=== PATIENT | female | born 1980 | race Caucasian/White ===

== ENCOUNTER 2017-11-29 16:32 | Inpatient (IN) | payer OTHER ==
[2017-11-29] MEDS ORDERED: SODIUM CHLORIDE 1,000 ML IV STA (18:04)
--- NOTE | 2017-11-29 18:05 | ED.PDOC ---
General ED Provider: Dr. ADALGISA KYLE Chief Complaint: Fever Stated Complaint: Painful [id number] Flank. Hx previouls Pyelonephritis and polycystic kidney disease. Time Seen by Physician: 17:45 Mode of Arrival: Walk-In Information Source: Patient Exam Limitations: No limitations Nursing and Triage Documentation Reviewed and Agree: Yes Reviewed sepsis parameters & appropriate labs ordered?: Yes System Inflammatory Response Syndrome: Temp 101F or Greater, Pulse >90 BPM Sepsis Protocol: For patient's 13 years and over: Temp is 96.8 and below OR 101 and greater Pulse >90 BPM Resp >20/minute Acutely Altered Mental Status Are patient's symptoms suggestive of a new infection, such as: -Pneumonia -Skin, Soft Tissue -Endocarditis -UTI -Bone, Joint Infection -Implantable Device -Acute Abdominal Infection -Wound Infection -Meningitis -Blood Stream Catheter Infection -Unknown Complaint Exam - Complaint/Exam Patient Complains of: Reports: Pain, Dysuria Symptoms Are: Still present Timing: Constant Initial Severity: Severe Current Severity: Severe Location of Pain: Reports: Diffuse, Right, Flank Character: Reports: Sharp, Colicky, Constant pressure Aggravating: Reports: Movement, Urination Alleviating: Reports: Position Associated Signs and Symptoms: Reports: Back pain, Fever, Dysuria, Increased urine frequency. Denies: Diaphoresis, Decreased activity, Vaginal bleeding Related History: Reports: Similar episode Ectopic Risk Factors: Reports: None Ovarian Torsion Risk Factors: Reports: None Surgical Obstruction Risk Factors: Reports: None Related Surgical History: Reports: None Abdominal Findings: Present: Rebound tenderness (RUQ) Review of Systems - Review Of Systems Constitutional: Reports: No symptoms, Chills, Diaphoresis, Fever, Malaise, Weakness Eyes: Reports: No symptoms Ears, Nose, Mouth, Throat: Reports: No symptoms Respiratory: Reports: No symptoms Cardiac: Reports: No symptoms GI: Reports: No symptoms : Reports: No symptoms, Burning, Dysuria, Frequency, Flank pain, Pain, Urgency Musculoskeletal: Reports: No symptoms Skin: Reports: No symptoms Neurological: Reports: No symptoms Endocrine: Reports: No symptoms Hematologic/Lymphatic: Reports: No symptoms All Other Systems: Reviewed and Negative Past Medical History - Past Medical History Previously Healthy: Yes Endocrine: Reports: None Cardiovascular: Reports: None Respiratory: Reports: None Hematological: Reports: None Gastrointestinal: Reports: None Genitourinary: Reports: UTI, Kidney stones, Urosepsis, Other (polycystic ovarian disease) Neuro/Psych: Reports: None Musculoskeletal: Reports: None Cancer: Reports: None Last Menstrual Period: 10/21/17 - Surgical History General Surgical History: Reports: Cholecystectomy - Family History Family History: Reports: Unknown - Social History Smoking Status: Current every day smoker Hx Substance Use: No Alcohol Screening: None Physical Exam - Physical Exam Appearance: Ill-appearing, No pain distress, Well-nourished Ill-appearing: Severe Pain Distress: Severe Eyes: GEOVANI, EOMI, Conjunctiva clear ENT: Ears normal, Nose normal, Oropharynx normal Respiratory: Airway patent, Breath sounds clear, Breath sounds equal, Respirations nonlabored Cardiovascular: RRR, Pulses normal, No rub, No murmur GI/: Soft, No masses, Bowel sounds normal, No Organomegaly, Tender, Bowel sounds hypoactive Musculoskeletal: Normal strength, ROM intact, No edema, No calf tenderness Skin: Warm, Dry, Normal color Neurological: Sensation intact, Motor intact, Reflexes intact, Cranial nerves intact, Alert, Oriented Psychiatric: Affect appropriate, Mood appropriate Critical Care Note - Critical Care Note Total Time (mins): 30 Course - Course Hematology/Chemistry: 11/29/17 18:16 11/29/17 18:16 Orders, Labs, Meds: Lab Review 11/29/17 11/29/17 11/29/17 18:00 18:16 18:16 WBC 12.67 H RBC 3.89 L Hgb 11.9 L Hct 34.7 L MCV 89.2 MCH 30.6 MCHC 34.3 RDW Coeff of April 12.9 Plt Count 176 Immature Gran % (Auto) 0.2 Neut % (Auto) 84.8 Lymph % (Auto) 5.1 L [place] % (Auto) 9.4 Eos % (Auto) 0.3 Baso % (Auto) 0.2 Immature Gran # (Auto) 0.0 Neut # (Auto) 10.7 H Lymph # (Auto) 0.6 [place] # (Auto) 1.2 Eos # (Auto) 0.0 Baso # (Auto) 0.0 Sodium 134 L Potassium 3.7 Chloride 103 Carbon Dioxide 22 Anion Gap 12.7 BUN 12 Creatinine 0.73 Estimated GFR (MDRD) 90.00 BUN/Creatinine Ratio 16.43 Glucose 112 H Lactic Acid Calcium 8.9 Total Bilirubin 0.3 AST 22 ALT 25 Alkaline Phosphatase 66 Total Protein 6.7 Albumin 3.0 L Globulin 3.7 Albumin/Globulin Ratio 0.81 Lipase 9 Serum , Qual Urine Color Yellow Urine Clarity Cloudy Urine pH 7.0 Ur Specific [place] 1.020 Urine Protein 2+ Urine Glucose (UA) Negative Urine Ketones Negative Urine Blood 2+ Urine Nitrite Negative Urine Bilirubin Negative Urine Urobilinogen 0.2 Ur Leukocyte Esterase 1+ Urine Microscopic WBC 20-30 Ur Squamous Epith Cells Not present Urine Bacteria 2+ 11/29/17 11/29/17 18:16 18:16 WBC RBC Hgb Hct MCV MCH MCHC RDW Coeff of April Plt Count Immature Gran % (Auto) Neut % (Auto) Lymph % (Auto) [place] % (Auto) Eos % (Auto) Baso % (Auto) Immature Gran # (Auto) Neut # (Auto) Lymph # (Auto) [place] # (Auto) Eos # (Auto) Baso # (Auto) Sodium Potassium Chloride Carbon Dioxide Anion Gap BUN Creatinine Estimated GFR (MDRD) BUN/Creatinine Ratio Glucose Lactic Acid 6.4 Calcium Total Bilirubin AST ALT Alkaline Phosphatase Total Protein Albumin Globulin Albumin/Globulin Ratio Lipase Serum , Qual Negative Urine Color Urine Clarity Urine pH Ur Specific [place] Urine Protein Urine Glucose (UA) Urine Ketones Urine Blood Urine Nitrite Urine Bilirubin Urine Urobilinogen Ur Leukocyte Esterase Urine Microscopic WBC Ur Squamous Epith Cells Urine Bacteria Orders Category Date Time Status IV [ED IV/MEDIPORT/POWERPORT] .ONCE EMERGENCY 11/29/17 18:02 Active BLOOD CULTURE (ED ONLY) Stat LAB 11/29/17 18:16 Received CBC W/ AUTO DIFF Stat LAB 11/29/17 18:16 Completed COMPREHENSIVE METABOLIC PANEL Stat LAB 11/29/17 18:16 Received HCG QUALITATIVE [SERUM ] Stat LAB 11/29/17 18:16 Completed LACTIC ACID Stat LAB 11/29/17 18:16 Received LIPASE Stat LAB 11/29/17 18:16 Received RAPID STREP SCREEN [MOLECULAR GROUP A STREP] Stat LAB 11/29/17 18:06 Completed UA [URINALYSIS C & S IF INDICATED] Stat LAB 11/29/17 18:00 Completed URINE CULTURE Stat LAB 11/29/17 18:00 Received 0.9 % Sodium Chloride [Saline Flush] MEDS 11/29/17 18:02 Ordered 1 syr IVF PRN PRN Ceftriaxone Sodium [Rocephin] 1 gm MEDS 11/29/17 18:50 Ordered 0.9 % Sodium Chloride [Sodium Chloride] 50 ml IV ONCE Hydromorphone HCl [Dilaudid] MEDS 11/29/17 18:51 Stat 0.5 mg IVP ONCE STA Ondansetron HCl/Pf [Zofran 4 mg/2 ml] MEDS 11/29/17 18:50 Stat 4 mg IVP ONCE STA Sodium Chloride 0.9% [Sodium Chloride] 1,000 ml MEDS 11/29/17 18:[address] ABDOMEN/PELVIS WO CONTRAST Stat RADS 11/29/17 18:03 Ordered Medications Generic Name Dose Route Start Last Admin Trade Name Freq PRN Reason Stop Dose Admin Hydromorphone HCl 0.5 mg 11/29/17 18:51 Dilaudid IVP 11/29/17 18:52 ONCE STA Sodium Chloride 1,000 mls @ 500 mls/hr 11/29/17 18:04 Sodium Chloride IV 11/29/17 20:03 BOLUS STA Ceftriaxone Sodium 1 gm/ 50 mls @ 75 mls/hr 11/29/17 18:50 Sodium Chloride IV 11/29/17 19:29 ONCE STA Ondansetron HCl 4 mg 11/29/17 18:50 Zofran 4 Mg/2 Ml IVP 11/29/17 18:51 ONCE STA Sodium Chloride 1 syr 11/29/17 18:02 Saline Flush IVF PRN PRN To flush IV Vital Signs: Temp Pulse Resp BP Pulse Ox 11/29/17 16:33 103.9 F H 112 H 20 130/79 96 Departure - Departure Time of Disposition: 19:00 Disposition: ADMITTED INPATIENT Discharge Problem: Pyelonephritis Condition: Fair Pt referred to PMD for follow-up: Yes (Dr Garnett) IPMP verified?: No Additional Instructions: Discussed with Dr Garnett who accepts admission Allergies/Adverse Reactions: Allergies No Known Allergies Allergy (Verified 11/29/17 16:37) Home Medications: Ambulatory Orders 1 [No Reported Medications] 11/29/17 Disposition Discussed With: Patient (Discussed with Dr Garnett who accepts admission )
[2017-11-29] MEDS ORDERED: ZOFRAN 4 MG/2 ML IVP STA (18:50)
[2017-11-29] MEDS ORDERED: ROCEPHIN 1 GM in SODIUM CHLORIDE 50 ML IV STA (18:50)
[2017-11-29] MEDS ORDERED: DILAUDID IVP STA (18:51)
[2017-11-29] MEDS ORDERED: TYLENOL PO STA (18:58)
[2017-11-29] MEDS ORDERED: ROCEPHIN ONE (19:00)
[2017-11-29] MEDS ORDERED: TYLENOL PO PRN (19:17)
--- NOTE | 2017-11-29 19:43 | CT ---
EXAM: CT ABDOMEN AND PELVIS HISTORY: Right flank pain TECHNIQUE: CT abdomen and pelvis without intravenous contrast. Images were reconstructed using 3 mm section thickness. Reformations were prepared. COMPARISON: 09/12/2015 FINDINGS: Diagnostic limitations exist without including contrast enhanced images. The kidneys are enlarged an d contain innumerable ill-defined simple and complex cystic masses as well as a few punctate calcific ations. This is similar to that previously seen and suggestive of polycystic kidney disease. Both o f the central renal compartments are full and not clearly delineated. There is no convincing evidenc e of hydronephrosis. The ureters have no distinct evidence of obstructing calculus. There is minima l perinephric fat stranding. Urinary bladder appears normal. Several small low attenuation lesions of the liver appear stable, probable cysts. Spleen is within n ormal limits. Gallbladder is absent. No pancreatic or adrenal pathology. Normal abdominal aorta. No gastric distension. Normal appendix. Moderate fecal retention with normal bowel gas pattern. U terus is grossly unremarkable. Probable trace pelvic ascites. Ventral abdominal wall is intact. Th e bones reveal arthropathy of the sacroiliac joints. Lung bases are clear. No pneumoperitoneum. IMPRESSION: 1. Redemonstration of findings suggestive of polycystic kidney disease. No definite hydronephrosis or ureteral obstruction. Urinary bladder is grossly unremarkable. 2. Normal appendix and bowel gas pattern. Trace pelvic ascites, possibly physiologic. No free air.
[2017-11-29 20:45] VITALS: BMI 29.2
[2017-11-29] MEDS ORDERED: ZOFRAN 4 MG/2 ML IVP PRN (21:37)
[2017-11-29] MEDS: SODIUM CHLORIDE 1,000 ML IV SCH (22:49)
[2017-11-29] MEDS: DEMEROL 50 MG/ML VIAL IVP PRN (23:49)
[2017-11-30] MEDS: DEMEROL 50 MG/ML VIAL IVP PRN ×3 (07:52→23:17)
[2017-11-30] MEDS: SODIUM CHLORIDE 1,000 ML IV SCH ×3 (09:42→14:42)
[2017-11-30] MEDS: ROCEPHIN 1 GM in SODIUM CHLORIDE 50 ML IV SCH (09:42)
[2017-11-30] MEDS: TORADOL IVP PRN (21:23)
[2017-12-01] MEDS: SODIUM CHLORIDE 1,000 ML IV SCH ×2 (05:10→22:28)
[2017-12-01] MEDS: DEMEROL 50 MG/ML VIAL IVP PRN ×2 (07:30→16:22)
[2017-12-01] MEDS: ROCEPHIN 1 GM in SODIUM CHLORIDE 50 ML IV SCH (08:06)
[2017-12-02] MEDS: DEMEROL 50 MG/ML VIAL IVP PRN ×3 (00:37→17:44)
[2017-12-02] MEDS: ROCEPHIN 1 GM in SODIUM CHLORIDE 50 ML IV SCH (08:39)
[2017-12-03] MEDS: DEMEROL 50 MG/ML VIAL IVP PRN (02:08)
[2017-12-03 05:59] VITALS: BP 109/71; TEMP 97.8
[2017-12-03] MEDS: SODIUM CHLORIDE 1,000 ML IV SCH (06:52)
[2017-12-03] MEDS: TORADOL IVP PRN (07:56)
[2017-12-03] MEDS: ROCEPHIN 1 GM in SODIUM CHLORIDE 50 ML IV SCH (08:19)
--- NOTE | 2017-12-04 14:35 | DS ---
DATE OF SERVICE: 12/03/17 FINAL DIAGNOSIS: 1. Acute right sided pyelonephritis organism e-coli sensitive to the medication 2. Polycystic kidney disease 3. Recurrent UTI 4. Lupus 5. Depression 6. Anxiety 7. Nicotine use 8. Constipation DISCHARGE INSTRUCTIONS: Discharge the patient home. Followup with the [facility] within 5-7 days. MEDICATIONS AT DISCHARGE: None NEW PRESCRIPTIONS: Macrodantin 100mg twice a day for 7 days. DIET INSTRUCTIONS: Increase hydration Regular ACTIVITY: Plenty of rest As much as tolerated. DISEASE SPECIFIC EDUCATION: UTI Hydration All discussed and verbalized understanding. HOSPITAL COURSE: JacobyOctober 37 year old female with a history of polycystic kidney came to the emergency room with fever, abdominal pain, nausea and vomiting. The patient been in the different state for also two months and came back here. In the emergency room the temperature was 103.9. Urine positive for the UTI and CT abdomen and pelvis showed the pyelonephritis. The patient was admitted to the hospital and started on the antibiotics. She did have fever of 101.4. Demerol was given for the pain which did help the patient. Toradol was continued and Rocephin was given. Nausea medication given. With the given treatment the patient's WBC came down to 12.67 to 8.52. Sodium and Potassium are normal and BUN and creatinine is normal. Eventually the patient is afebrile and e-coli was organism sensitive to a host of medications so started on the Macrodantin and discharged the patient home. TIME SPENT: MORE THAN 65 MINUTES MTDD
== END 2017-12-03 10:05 | disposition home or self-care (01) | DRG 690 ==
LOC: ED 16:32 → MEDSURG B 19:38
PROVIDERS: ADMIT Emergency Medicine; ATTEND Emergency Medicine
DX: N10 Acute pyelonephritis (principal); Q61.3 Polycystic kidney, unspecified; B96.20 Unspecified Escherichia coli [E. coli] as the cause of diseases classified elsewhere; R50.9 Fever, unspecified; K59.00 Constipation, unspecified; M32.9 Systemic lupus erythematosus, unspecified; F41.9 Anxiety disorder, unspecified; F17.210 Nicotine dependence, cigarettes, uncomplicated; Z87.440 Personal history of urinary (tract) infections
CPT/HCPCS: 36415; 80053; 81001; 83605; 83690; 84703; 85025; 87040; 87086; 87186; 87651; 96365; 96375; 99285

== ENCOUNTER 2017-12-05 07:31 | Emergency (ER) ==
[2017-12-05 07:36] VITALS: BP 145/84; TEMP 98.9; BMI 27.8
--- NOTE | 2017-12-05 08:08 | ED.PDOC ---
General ED Provider: Dr. KASIE FERREIRA Chief Complaint: Tooth Problem Stated Complaint: dental pain Time Seen by Physician: 07:34 Mode of Arrival: Walk-In Information Source: Patient Exam Limitations: No limitations Nursing and Triage Documentation Reviewed and Agree: Yes Reviewed sepsis parameters & appropriate labs ordered?: Yes System Inflammatory Response Syndrome: Not Applicable Sepsis Protocol: For patient's 13 years and over: Temp is 96.8 and below OR 101 and greater Pulse >90 BPM Resp >20/minute Acutely Altered Mental Status Are patient's symptoms suggestive of a new infection, such as: -Pneumonia -Skin, Soft Tissue -Endocarditis -UTI -Bone, Joint Infection -Implantable Device -Acute Abdominal Infection -Wound Infection -Meningitis -Blood Stream Catheter Infection -Unknown System Inflammatory Response Syndrome: Not Applicable EENT Complaint Exam - Dental/Oral Complaint/Exam Mechanism of Injury: No known trauma Onset/Duration: chronic pain Symptoms Are: Still present Timing: Constant Initial Severity: Moderate Current Severity: Moderate Character: Reports: Aching, Throbbing Aggravating: Reports: Heat, Cold, Chewing Alleviating: Reports: None Associated Signs and Symptoms: Denies: Swelling, Discharge, Fever, Foul odor, Foul taste in mouth Related History: Reports: Similar episode Cardiac Risk Factors: Reports: None Dental/Oral Surgical History: Reports: None Tooth Findings: Present: Gross decay, Gross caries Cervical Lymphadenopathy Present: No Facial Swelling Present: Yes Bleeding Present: No Oropharynx Findings: Absent: Clots, Active bleeding Septal Hematoma: No Foreign Body Present: No Dysphagia Present: No Drooling Present: No Asymmetrical Tonsillar Swelling Present: No Uvula Midline: No Diana-tonsillar Fluctuence: No Trismus Present: No Palatal Petechiae Present: No Scarlatinaform Rash Present: No Differential Diagnoses: Dental Caries Review of Systems - Review Of Systems Constitutional: Reports: No symptoms Eyes: Reports: No symptoms Ears, Nose, Mouth, Throat: Reports: No symptoms Respiratory: Reports: No symptoms Cardiac: Reports: No symptoms GI: Reports: No symptoms : Reports: No symptoms Musculoskeletal: Reports: No symptoms Skin: Reports: No symptoms Neurological: Reports: No symptoms Endocrine: Reports: No symptoms Hematologic/Lymphatic: Reports: No symptoms All Other Systems: Reviewed and Negative Past Medical History - Past Medical History Previously Healthy: Yes Endocrine: Reports: None Cardiovascular: Reports: None Respiratory: Reports: None Hematological: Reports: None Gastrointestinal: Reports: None Genitourinary: Reports: UTI, Kidney stones, Urosepsis, Other (polycystic ovarian disease) Neuro/Psych: Reports: None Musculoskeletal: Reports: None Cancer: Reports: None Last Menstrual Period: 1 month ago - Surgical History General Surgical History: Reports: Cholecystectomy - Family History Family History: Reports: Unknown - Social History Smoking Status: Vaping Hx Substance Use: No Alcohol Screening: None Physical Exam - Physical Exam Appearance: Well-appearing, No pain distress, Well-nourished Eyes: GEOVANI, EOMI, Conjunctiva clear ENT: Ears normal, Nose normal, Oropharynx normal Respiratory: Airway patent, Breath sounds clear, Breath sounds equal, Respirations nonlabored Cardiovascular: RRR, Pulses normal, No rub, No murmur GI/: Soft, Nontender, No masses, Bowel sounds normal, No Organomegaly Musculoskeletal: Normal strength, ROM intact, No edema, No calf tenderness Skin: Warm, Dry, Normal color Neurological: Sensation intact, Motor intact, Reflexes intact, Cranial nerves intact, Alert, Oriented Psychiatric: Affect appropriate, Mood appropriate Critical Care Note - Critical Care Note Total Time (mins): 0 Course - Course Vital Signs: Temp Pulse Resp BP Pulse Ox 12/05/17 07:31 98.9 F 82 16 145/84 H 96 Departure - Departure Time of Disposition: 08:07 Disposition: HOME SELF-CARE Discharge Problem: Toothache Instructions: Toothache (ED) Condition: Good Pt referred to PMD for follow-up: Yes IPMP verified?: No Additional Instructions: Please call your Family Physician as soon as possible to schedule a follow-up appointment. Allergies/Adverse Reactions: Allergies No Known Allergies Allergy (Verified 12/05/17 07:39) Home Medications: Ambulatory Orders Nitrofurantoin Macrocrystal [Macrodantin] 100 mg PO BID 7 Days capsule Disposition Discussed With: Patient
== END 2017-12-05 08:16 | disposition home or self-care (01) ==
LOC: ED 07:31
DX: K08.89 Other specified disorders of teeth and supporting structures (principal); K02.7 Dental root caries
CPT/HCPCS: 99282

== ENCOUNTER 2018-01-31 20:09 | Emergency (ER) ==
[2018-01-31] MEDS ORDERED: INDERAL PO STA (20:21)
[2018-01-31 20:25] VITALS: TEMP 98.5; BMI 25.7
[2018-01-31 20:31] VITALS: BP 147/86
[2018-01-31] MEDS ORDERED: ATIVAN IVP STA ×2 (20:46→20:55)
[2018-01-31] MEDS ORDERED: LOPRESSOR IVP STA (20:47)
[2018-01-31] MEDS ORDERED: SODIUM CHLORIDE 1,000 ML IV STA ×2 (20:49→22:27)
[2018-01-31] MEDS ORDERED: POTASSIUM CHLORIDE PREMIX RUN 10 MEQ in PREMIX 100 ML WATER 1 BAG IV STA ×5 (22:15→22:16)
--- NOTE | 2018-01-31 22:19 | ED.PDOC ---
General ED Provider: Dr. ADALGISA HALLMAN-ER Chief Complaint: Arrhythmia Stated Complaint: my heart is racing Time Seen by Physician: 20:15 Mode of Arrival: Wheelchair Information Source: Patient Exam Limitations: No limitations [facility] Nursing and Triage Documentation Reviewed and Agree: Yes Does patient meet sepsis criteria?: No System Inflammatory Response Syndrome: Not Applicable Sepsis Protocol: For patient's 13 years and over: Temp is 96.8 and below OR 101 and greater Pulse >90 BPM Resp >20/minute Acutely Altered Mental Status Are patient's symptoms suggestive of a new infection, such as: -Pneumonia -Skin, Soft Tissue -Endocarditis -UTI -Bone, Joint Infection -Implantable Device -Acute Abdominal Infection -Wound Infection -Meningitis -Blood Stream Catheter Infection -Unknown Cardiovascular Complaint Exam - Palpitations Complaint/Exam Onset/Duration: 30 min ago Symptoms Are: Still present Timing: Constant Initial Severity: Mild Current Severity: Moderate Character: Reports: Fast, Irregular, Pounding Aggravating: Reports: None Alleviating: Reports: None Associated Signs and Symptoms: Denies: Lightheadedness, Dizziness, Syncope, Chest pain, Shortness of breath, Diaphoresis, Nausea, Vomiting Quality Indicator For Non-Traumatic Chest Pain/Syncope: EKG Performed Review of Systems - Review Of Systems Constitutional: Reports: No symptoms Eyes: Reports: No symptoms Ears, Nose, Mouth, Throat: Reports: No symptoms Respiratory: Reports: No symptoms Cardiac: Reports: Palpitations GI: Reports: No symptoms : Reports: No symptoms Musculoskeletal: Reports: No symptoms Skin: Reports: No symptoms Neurological: Reports: No symptoms Endocrine: Reports: No symptoms Hematologic/Lymphatic: Reports: No symptoms All Other Systems: Reviewed and Negative Past Medical History - Past Medical History Previously Healthy: Yes Endocrine: Reports: None Cardiovascular: Reports: None Respiratory: Reports: None Hematological: Reports: None Gastrointestinal: Reports: None Genitourinary: Reports: UTI, Kidney stones, Urosepsis, Other (polycystic ovarian disease) Neuro/Psych: Reports: None Musculoskeletal: Reports: None Cancer: Reports: None Last Menstrual Period: 3 weeks - Surgical History General Surgical History: Reports: Cholecystectomy - Family History Family History: Reports: Unknown - Social History Smoking Status: Current every day smoker, Heavy tobacco smoker Hx Substance Use: No Alcohol Screening: None - Immunizations Tetanus Shot up to Date: Yes Physical Exam - Physical Exam Appearance: Well-appearing, No pain distress, Well-nourished Eyes: GEOVANI, EOMI, Conjunctiva clear ENT: Ears normal, Nose normal, Oropharynx normal Neck: Supple Respiratory: Airway patent, Breath sounds clear, Breath sounds equal, Respirations nonlabored Cardiovascular: Tachycardia GI/: Soft, Nontender, No masses, Bowel sounds normal, No Organomegaly Musculoskeletal: Normal strength, ROM intact, No edema, No calf tenderness Skin: Warm, Dry, Normal color Neurological: Sensation intact, Motor intact, Reflexes intact, Cranial nerves intact, Alert, Oriented Psychiatric: Affect appropriate, Mood appropriate, Anxious Re-Evaluation - Re-Evaluation Time of Re-Evaluation: 02:09 Status: Improved (sleeping) Vital Signs Stable: Yes Pain Level: 0 Appearance: NAD Lungs: Clear Skin: Warm and Dry Neuro: Alert and Oriented X3 CV: RRR Critical Care Note - Critical Care Note Total Time (mins): 0 Course - Course Hematology/Chemistry: 01/31/18 20:35 01/31/18 20:35 Orders, Labs, Meds: Lab Review 01/31/18 01/31/18 01/31/18 20:24 20:24 20:24 WBC RBC Hgb Hct MCV MCH MCHC RDW Coeff of April Plt Count Immature Gran % (Auto) Neut % (Auto) Lymph % (Auto) [place] % (Auto) Eos % (Auto) Baso % (Auto) Immature Gran # (Auto) Neut # (Auto) Lymph # (Auto) [place] # (Auto) Eos # (Auto) Baso # (Auto) D-Dimer (Manual) Sodium Potassium Chloride Carbon Dioxide Anion Gap BUN Creatinine Estimated GFR (MDRD) BUN/Creatinine Ratio Glucose Calcium Total Bilirubin AST ALT Alkaline Phosphatase Total Creatine Kinase CK-MB (CK-2) CK-MB (CK-2) % Troponin I Total Protein Albumin Globulin Albumin/Globulin Ratio TSH Free T4 Urine Color Yellow Urine Clarity Clear Urine pH 5.5 Ur Specific [place] <=1.005 Urine Protein Negative Urine Glucose (UA) Negative Urine Ketones Negative Urine Blood Trace-lysed Urine Nitrite Negative Urine Bilirubin Negative Urine Urobilinogen 0.2 Ur Leukocyte Esterase Trace Urine Microscopic RBC 0-2 Urine Microscopic WBC 2-5 Ur Squamous Epith Cells 10-20 Urine Bacteria 2+ Urine Test Negative Urine Opiates Screen Positive Ur Oxycodone Screen Positive Urine Methadone Screen Negative Ur Propoxyphene Screen Negative Ur Barbiturates Screen Negative U Tricyclic Antidepress Negative Ur Phencyclidine Scrn Negative Ur Amphetamine Screen Positive U Methamphetamines Scrn Positive U Benzodiazepines Scrn Negative Urine Cocaine Screen Negative U Cannabinoids Screen Positive 01/31/18 01/31/18 01/31/18 20:35 20:35 20:35 WBC 10.62 H RBC 4.92 Hgb 14.7 Hct 41.3 MCV 83.9 MCH 29.9 MCHC 35.6 H RDW Coeff of April 12.5 Plt Count 279 Immature Gran % (Auto) 0.2 Neut % (Auto) 64.7 Lymph % (Auto) 27.5 [place] % (Auto) 6.9 Eos % (Auto) 0.3 Baso % (Auto) 0.4 Immature Gran # (Auto) 0.0 Neut # (Auto) 6.9 Lymph # (Auto) 2.9 [place] # (Auto) 0.7 Eos # (Auto) 0.0 Baso # (Auto) 0.0 D-Dimer (Manual) Sodium 134 L Potassium 3.2 L Chloride 104 Carbon Dioxide 20 L Anion Gap 13.2 BUN 12 Creatinine 0.81 Estimated GFR (MDRD) 80.00 BUN/Creatinine Ratio 14.81 Glucose 121 H Calcium 9.6 Total Bilirubin 0.6 AST 24 ALT 15 Alkaline Phosphatase 50 Total Creatine Kinase CK-MB (CK-2) CK-MB (CK-2) % Troponin I Total Protein 8.0 Albumin 4.3 Globulin 3.7 Albumin/Globulin Ratio 1.16 TSH 0.732 Free T4 1.10 Urine Color Urine Clarity Urine pH Ur Specific [place] Urine Protein Urine Glucose (UA) Urine Ketones Urine Blood Urine Nitrite Urine Bilirubin Urine Urobilinogen Ur Leukocyte Esterase Urine Microscopic RBC Urine Microscopic WBC Ur Squamous Epith Cells Urine Bacteria Urine Test Urine Opiates Screen Ur Oxycodone Screen Urine Methadone Screen Ur Propoxyphene Screen Ur Barbiturates Screen U Tricyclic Antidepress Ur Phencyclidine Scrn Ur Amphetamine Screen U Methamphetamines Scrn U Benzodiazepines Scrn Urine Cocaine Screen U Cannabinoids Screen 01/31/18 01/31/18 20:35 20:35 WBC RBC Hgb Hct MCV MCH MCHC RDW Coeff of April Plt Count Immature Gran % (Auto) Neut % (Auto) Lymph % (Auto) [place] % (Auto) Eos % (Auto) Baso % (Auto) Immature Gran # (Auto) Neut # (Auto) Lymph # (Auto) [place] # (Auto) Eos # (Auto) Baso # (Auto) D-Dimer (Manual) 607.73 Sodium Potassium Chloride Carbon Dioxide Anion Gap BUN Creatinine Estimated GFR (MDRD) BUN/Creatinine Ratio Glucose Calcium Total Bilirubin AST ALT Alkaline Phosphatase Total Creatine Kinase 340 CK-MB (CK-2) 2.8 CK-MB (CK-2) % 0.77047 Troponin I < 0.0100 Total Protein Albumin Globulin Albumin/Globulin Ratio TSH Free T4 Urine Color Urine Clarity Urine pH Ur Specific [place] Urine Protein Urine Glucose (UA) Urine Ketones Urine Blood Urine Nitrite Urine Bilirubin Urine Urobilinogen Ur Leukocyte Esterase Urine Microscopic RBC Urine Microscopic WBC Ur Squamous Epith Cells Urine Bacteria Urine Test Urine Opiates Screen Ur Oxycodone Screen Urine Methadone Screen Ur Propoxyphene Screen Ur Barbiturates Screen U Tricyclic Antidepress Ur Phencyclidine Scrn Ur Amphetamine Screen U Methamphetamines Scrn U Benzodiazepines Scrn Urine Cocaine Screen U Cannabinoids Screen Orders Category Date Time Status EKG-(ED ONLY) Stat CARDIO 01/31/18 20:15 Completed ED SPIRITUAL COUNSELOR APPLIED .ONCE EMERGENCY 01/31/18 20:14 Active IV [ED IV/MEDIPORT/POWERPORT] .ONCE EMERGENCY 01/31/18 20:46 Active CBC W/ AUTO DIFF Stat LAB 01/31/18 20:35 Completed COMPREHENSIVE METABOLIC PANEL Stat LAB 01/31/18 20:35 Completed CREATINE KINASE Stat LAB 01/31/18 20:35 Completed D-DIMER Stat LAB 01/31/18 20:35 Completed FREE T4 (FREE THYROXINE) Stat LAB 01/31/18 20:35 Completed TROPONIN I Stat LAB 01/31/18 20:35 Completed TSH [THYROID STIMULATING HORMONE] Stat LAB 01/31/18 20:35 Completed URINALYSIS C & S IF INDICATED Stat LAB 01/31/18 20:24 Completed URINE CULTURE Stat LAB 01/31/18 20:24 Received URINE DRUG SCREEN (RAPID FOR ED) [DRUG SCREEN, URINE, LAB 01/31/18 20:24 Completed RAPID] Stat URINE Stat LAB 01/31/18 20:24 Completed 0.9 % Sodium Chloride [Saline Flush] MEDS 01/31/18 20:46 Ordered 1 syr IVF PRN PRN Lorazepam [Ativan] MEDS 01/31/18 20:46 Discontinued 1 mg IVP ONCE STA Lorazepam [Ativan] MEDS 01/31/18 20:55 Discontinued 1 mg IVP ONCE STA Metoprolol Tartrate [Lopressor] MEDS 01/31/18 20:47 Discontinued 10 mg IVP ONCE STA Potassium Chloride [Potassium Chloride Premix [place]] 10 MEDS 01/31/18 22:15 Discontinued meq Premix 100 ml Water 1 bag IV ONCE Potassium Chloride [Potassium Chloride [place]] 10 MEDS 01/31/18 22:15 Discontinued meq Premix 100 ml Water 1 bag IV ONCE Potassium Chloride [Potassium Chloride [place]] 10 MEDS 01/31/18 22:16 Discontinued meq Premix 100 ml Water 1 bag IV ONCE Potassium Chloride [Potassium Chloride [place]] 300 MEDS 01/31/18 22:22 Discontinued ml IV .STK-MED Propranolol HCl [Inderal] MEDS 01/31/18 20:21 Discontinued 20 mg PO ONCE STA Sodium Chloride 0.9% [Sodium Chloride] 1,000 ml MEDS 01/31/18 22:27 Active IV 250 mls/hr Sodium Chloride 0.9% [Sodium Chloride] 1,000 ml MEDS 01/31/18 20:49 Discontinued IV BOLUS Medications Generic Name Dose Route Start Last Admin Trade Name Freq PRN Reason Stop Dose Admin Sodium Chloride 1,000 mls @ 250 mls/hr 01/31/18 22:27 01/31/18 22:30 Sodium Chloride IV 02/01/18 02:26 250 mls/hr .Q4H STA Administration Sodium Chloride 1 syr 01/31/18 20:46 01/31/18 20:52 Saline Flush IVF 1 syr PRN PRN Administration To flush IV Discontinued Medications Generic Name Dose Route Start Last Admin Trade Name Freq PRN Reason Stop Dose Admin Sodium Chloride 1,000 mls @ 1,000 mls/hr 01/31/18 20:49 01/31/18 20:53 Sodium Chloride IV 01/31/18 21:48 1,000 mls/hr BOLUS STA Administration Potassium Chloride 10 meq/ 100 mls @ 100 mls/hr 01/31/18 22:15 01/31/18 22:34 Sterile Water IV 01/31/18 23:14 100 mls/hr ONCE STA Administration Potassium Chloride 10 meq/ 100 mls @ 100 mls/hr 01/31/18 22:15 02/01/18 00:01 Sterile Water IV 01/31/18 23:14 100 mls/hr ONCE STA Administration Potassium Chloride 10 meq/ 100 mls @ 100 mls/hr 01/31/18 22:16 02/01/18 01:05 Sterile Water IV 01/31/18 23:15 100 mls/hr ONCE STA Administration Lorazepam 1 mg 01/31/18 20:46 01/31/18 20:53 Ativan IVP 01/31/18 20:47 1 mg ONCE STA Administration Lorazepam 1 mg 01/31/18 20:55 01/31/18 21:02 Ativan IVP 01/31/18 20:56 1 mg ONCE STA Administration Metoprolol Tartrate 10 mg 01/31/18 20:47 01/31/18 21:05 Lopressor IVP 01/31/18 20:48 10 mg ONCE STA Administration Propranolol HCl 20 mg 01/31/18 20:21 01/31/18 20:33 Inderal PO 01/31/18 20:22 20 mg ONCE STA Administration Vital Signs: Temp Pulse Resp BP Pulse Ox 01/31/18 20:30 144 H 147/86 H 100 01/31/18 20:11 98.5 F 120 H 20 149/94 H 98 HERMILO Risk Score HERMILO Risk Score: Risk Score Odds of by 30D 0 0.1 (0.1-0.2) 1 0.3 (0.2-0.3) 2 0.4 (0.3-0.5) 3 0.7 (0.6-0.9) 4 1.2 (1.0-1.5) 5 2.2 (1.9-2.6) 6 3.0 (2.5-3.6) 7 4.8 (3.8-6.1) Departure - Departure Time of Disposition: 02:10 Disposition: HOME SELF-CARE Discharge Problem: Hypokalemia, Anxiety, Substance abuse Instructions: Methamphetamine Abuse (ED), Anxiety (ED) Condition: Good Pt referred to PMD for follow-up: Yes IPMP verified?: No Additional Instructions: avoid all illegal drugs--have your pcp recheck potassium level Allergies/Adverse Reactions: Allergies No Known Allergies Allergy (Verified 12/05/17 07:39) Home Medications: Ambulatory Orders Hydrocodone/Acetaminophen [[place] 10-325 Tablet] 1 each PO Q8HR #14 tablet Amoxicillin 500 mg PO BID 01/31/18 Disposition Discussed With: Patient, Family
[2018-01-31] MEDS ORDERED: POTASSIUM CHLORIDE PREMIX RUN 300 ML IV ONE (22:22)
== END 2018-02-01 02:27 | disposition home or self-care (01) ==
LOC: ED 20:09
DX: F41.9 Anxiety disorder, unspecified (principal); E87.6 Hypokalemia; F15.10 Other stimulant abuse, uncomplicated; F19.10 Other psychoactive substance abuse, uncomplicated; F17.210 Nicotine dependence, cigarettes, uncomplicated
CPT/HCPCS: 36415; 80053; 80306; 81001; 81025; 82550; 82553; 84439; 84443; 84484; 85025; 85379; 87086; 93005; 93010; 96361; 96365; 96366; 96375; 99283

== ENCOUNTER 2018-02-03 11:37 | Emergency (ER) ==
[2018-02-03 11:49] VITALS: BP 143/104; TEMP 98; BMI 26.4
[2018-02-03] MEDS ORDERED: SODIUM CHLORIDE 1,000 ML IV STA (12:05)
[2018-02-03] MEDS ORDERED: ZOFRAN 4 MG/2 ML IVP STA (12:06)
[2018-02-03] MEDS ORDERED: TRANDATE IVP STA (12:06)
--- NOTE | 2018-02-03 13:11 | CT ---
EXAM: CT brain without contrast HISTORY: Headache, facial numbness TECHNIQUE: Multi-slice sequential. Coronal and sagital reformations were performed. COMPARISON: 07/28/2015. FINDINGS: There is no acute intracranial hemorrhage, extraxial fluid collection, mass affect, or midlineshift.T he ventricles are normal in size.The colon-white matter interface is maintained.The basal cisterns are patent.The visualized paranasal sinuses are clear. Mastoid air cells are well aerated.The calvarium is unremarkable. IMPRESSION: No acute intracranial findings.
--- NOTE | 2018-02-03 13:17 | ED.PDOC ---
General ED Provider: Dr. ADALGISA HALLMAN-ER Chief Complaint: Weakness Stated Complaint: my face may have been numb this am--im not sure--see recently after meth use Time Seen by Physician: 11:45 Mode of Arrival: Walk-In Information Source: Patient Exam Limitations: No limitations Primary Care Provider[facility] Nursing and Triage Documentation Reviewed and Agree: Yes Does patient meet sepsis criteria?: No System Inflammatory Response Syndrome: Not Applicable Sepsis Protocol: For patient's 13 years and over: Temp is 96.8 and below OR 101 and greater Pulse >90 BPM Resp >20/minute Acutely Altered Mental Status Are patient's symptoms suggestive of a new infection, such as: -Pneumonia -Skin, Soft Tissue -Endocarditis -UTI -Bone, Joint Infection -Implantable Device -Acute Abdominal Infection -Wound Infection -Meningitis -Blood Stream Catheter Infection -Unknown Neurological Complaint Exam - Neurological Deficit Complaint/Exam Patient Complains of: Reports: Abnormal sensation Symptom Onset Unknown: No Onset: Gradual Symptoms Are: Resolved Initial Severity: Mild Current Severity: Mild Location: Reports: Facial Character: Reports: Numbness, Tingling Aggravating: Reports: Hypertension Alleviating: Reports: None Associated Signs and Symptoms: Denies: Confusion, Agitation, Responsiveness, LOC , Headache, Fever, Nuchal rigidity, Recent trauma, Remote trauma, Recent illness Meningeal Signs Positive: No Focal Weakness: Present: None Focal Sensory Loss: Present: None Gait: Normal Nystagmus Present: No Gag Reflex Present: Yes [id number]: Normal Findings Heel to Toe Normal: Yes Signs of Trauma: No IV t-PA Prescribed: No Quality Indicator For Non-Traumatic Chest Pain/Syncope: EKG Performed Review of Systems - Review Of Systems Constitutional: Reports: No symptoms Eyes: Reports: No symptoms Ears, Nose, Mouth, Throat: Reports: No symptoms Respiratory: Reports: No symptoms Cardiac: Reports: No symptoms GI: Reports: No symptoms : Reports: No symptoms Musculoskeletal: Reports: No symptoms Skin: Reports: No symptoms Neurological: Reports: No symptoms Endocrine: Reports: No symptoms Hematologic/Lymphatic: Reports: No symptoms All Other Systems: Reviewed and Negative Past Medical History - Past Medical History Previously Healthy: Yes Endocrine: Reports: None Cardiovascular: Reports: None Respiratory: Reports: None Hematological: Reports: None Gastrointestinal: Reports: None Genitourinary: Reports: UTI, Kidney stones, Urosepsis, Other (polycystic ovarian disease) Neuro/Psych: Reports: None Musculoskeletal: Reports: None Cancer: Reports: None Last Menstrual Period: 01/2018 - Surgical History General Surgical History: Reports: Cholecystectomy - Family History Family History: Reports: Unknown - Social History Smoking Status: Current every day smoker Hx Substance Use: Yes (METH FOUR TO FIVE DAYS) Alcohol Screening: None - Immunizations Tetanus Shot up to Date: Yes Physical Exam - Physical Exam Appearance: Well-appearing Eyes: GEOVANI, EOMI, Conjunctiva clear ENT: Ears normal, Nose normal, Oropharynx normal Neck: Supple Respiratory: Airway patent, Breath sounds clear, Breath sounds equal, Respirations nonlabored Cardiovascular: RRR GI/: Soft Musculoskeletal: Normal strength Skin: Warm, Dry, Normal color Neurological: Sensation intact, Motor intact, Reflexes intact, Cranial nerves intact, Alert, Oriented Psychiatric: Affect appropriate, Mood appropriate, Anxious Interpretation - Radiology Interpretation Radiology Interpretation By: Radiologist Radiology Results: Negative Exam Interpreted: CT Scan - EKG Interpretation Time of EKG #1: 13:17 Rate: Normal Rhythm: Sinus Ectopy: None [place]: NL ST Segment: Normal Interpretation: nsr Re-Evaluation - Re-Evaluation Time of Re-Evaluation: 13:17 Status: Improved (no faciaL numbness or tingling or weakness) Vital Signs Stable: Yes (bp 120/80) Pain Level: 0 Appearance: NAD Lungs: Clear Skin: Warm and Dry Neuro: Alert and Oriented X3 CV: RRR Critical Care Note - Critical Care Note Total Time (mins): 0 Course - Course Hematology/Chemistry: 02/03/18 12:13 02/03/18 12:13 Orders, Labs, Meds: Lab Review 02/03/18 02/03/18 02/03/18 12:00 12:00 12:13 WBC 10.61 H RBC 4.66 Hgb 13.9 Hct 40.4 MCV 86.7 MCH 29.8 MCHC 34.4 RDW Coeff of April 12.9 Plt Count 276 Immature Gran % (Auto) 0.3 Neut % (Auto) 81.2 Lymph % (Auto) 13.1 [place] % (Auto) 5.1 Eos % (Auto) 0.0 Baso % (Auto) 0.3 Immature Gran # (Auto) 0.0 Neut # (Auto) 8.6 H Lymph # (Auto) 1.4 [place] # (Auto) 0.5 Eos # (Auto) 0.0 Baso # (Auto) 0.0 Sodium Potassium Chloride Carbon Dioxide Anion Gap BUN Creatinine Estimated GFR (MDRD) BUN/Creatinine Ratio Glucose Calcium Total Bilirubin AST ALT Alkaline Phosphatase Total Creatine Kinase Troponin I Total Protein Albumin Globulin Albumin/Globulin Ratio Urine Color Yellow Urine Clarity Clear Urine pH 5.5 Ur Specific [place] <=1.005 Urine Protein Negative Urine Glucose (UA) Negative Urine Ketones Negative Urine Blood Negative Urine Nitrite Negative Urine Bilirubin Negative Urine Urobilinogen 0.2 Ur Leukocyte Esterase Negative Urine Test Negative 02/03/18 12:13 WBC RBC Hgb Hct MCV MCH MCHC RDW Coeff of April Plt Count Immature Gran % (Auto) Neut % (Auto) Lymph % (Auto) [place] % (Auto) Eos % (Auto) Baso % (Auto) Immature Gran # (Auto) Neut # (Auto) Lymph # (Auto) [place] # (Auto) Eos # (Auto) Baso # (Auto) Sodium 137 Potassium 3.6 Chloride 107 Carbon Dioxide 23 Anion Gap 10.6 BUN 9 Creatinine 0.78 Estimated GFR (MDRD) 84.00 BUN/Creatinine Ratio 11.53 Glucose 122 H Calcium 8.9 Total Bilirubin 0.5 AST 16 ALT 12 Alkaline Phosphatase 41 L Total Creatine Kinase 82 Troponin I 0.0130 Total Protein 6.8 Albumin 3.8 Globulin 3.0 Albumin/Globulin Ratio 1.27 Urine Color Urine Clarity Urine pH Ur Specific [place] Urine Protein Urine Glucose (UA) Urine Ketones Urine Blood Urine Nitrite Urine Bilirubin Urine Urobilinogen Ur Leukocyte Esterase Urine Test Orders Category Date Time Status EKG-(ED ONLY) Stat CARDIO 02/03/18 12:07 Completed Help Desk Intern [ED ORACLE DATABASE ADMINISTRATOR APPLIED] .ONCE EMERGENCY 02/03/18 12:34 Active IV [ED IV/MEDIPORT/POWERPORT] .ONCE EMERGENCY 02/03/18 12:05 Active CBC W/ AUTO DIFF Stat LAB 02/03/18 12:13 Completed COMPREHENSIVE METABOLIC PANEL Stat LAB 02/03/18 12:13 Completed CREATINE KINASE Stat LAB 02/03/18 12:13 Completed TROPONIN I Stat LAB 02/03/18 12:13 Completed URINALYSIS C & S IF INDICATED Stat LAB 02/03/18 12:00 Completed URINE Stat LAB 02/03/18 12:00 Completed 0.9 % Sodium Chloride [Saline Flush] MEDS 02/03/18 12:05 Discontinued 1 syr IVF PRN PRN Labetalol HCl [Trandate] MEDS 02/03/18 12:06 Discontinued 20 mg IVP ONCE STA Ondansetron HCl/Pf [Zofran 4 mg/2 ml] MEDS 02/03/18 12:06 Discontinued 4 mg IVP ONCE STA Sodium Chloride 0.9% [Sodium Chloride] 1,000 ml MEDS 02/03/18 12:05 Discontinued IV 100 mls/hr CT HEAD W/O CONTRAST Stat RADS 02/03/18 12:06 Completed Medications Discontinued Medications Generic Name Dose Route Start Last Admin Trade Name Freq PRN Reason Stop Dose Admin Sodium Chloride 1,000 mls @ 100 mls/hr 02/03/18 12:05 02/03/18 12:30 Sodium Chloride IV 02/03/18 22:04 100 mls/hr .Q10H STA Administration Labetalol HCl 20 mg 02/03/18 12:06 02/03/18 12:29 Trandate IVP 02/03/18 12:07 20 mg ONCE STA Administration Ondansetron HCl 4 mg 02/03/18 12:06 02/03/18 12:28 Zofran 4 Mg/2 Ml IVP 02/03/18 12:07 4 mg ONCE STA Administration Sodium Chloride 1 syr 02/03/18 12:05 Saline Flush IVF PRN PRN To flush IV Vital Signs: Temp Pulse Resp BP Pulse Ox 02/03/18 11:38 98 F 90 16 143/104 H 99 Departure - Departure Time of Disposition: 13:17 Disposition: HOME SELF-CARE Discharge Problem: Elevated blood pressure reading Instructions: Hypertension (ED) Condition: Good Pt referred to PMD for follow-up: Yes IPMP verified?: No Additional Instructions: monitor bp at home--rest and avoid stress--f/u with pcp this week Allergies/Adverse Reactions: Allergies No Known Allergies Allergy (Verified 02/05/18 01:44) Home Medications: Ambulatory Orders Hydrocodone Bit/Acetaminophen [[place] 7.5-325] 1 each PO Q4-6H PRN 02/05/18 Disposition Discussed With: Patient
== END 2018-02-03 13:28 | disposition home or self-care (01) ==
LOC: ED 11:37
DX: I10 Essential (primary) hypertension (principal); R53.1 Weakness; R20.2 Paresthesia of skin; R20.0 Anesthesia of skin; F17.210 Nicotine dependence, cigarettes, uncomplicated
CPT/HCPCS: 36415; 80053; 81001; 81025; 82550; 84484; 85025; 93005; 93010; 96361; 96374; 96375; 99283

== ENCOUNTER 2018-02-05 01:32 | Emergency (ER) ==
[2018-02-05 01:44] VITALS: BP 143/79; TEMP 97.5; BMI 27.5
[2018-02-05] MEDS ORDERED: TORADOL IM STA (02:05)
--- NOTE | 2018-02-05 02:08 | ED.PDOC ---
General ED Provider: Dr. JAG HOLLAND Chief Complaint: Nausea/Vomiting Stated Complaint: Patient states she has had back pain for the past two days. She was seen here recently for elevated blood pressure and Drug abuse. she denies any Trauma. Pain is in her lower back bilatearlly. She is supposes to start her period soon. Also complains of 3 episodes of diarrhea and one episode of vomiting tonight. Time Seen by Physician: 02:05 Mode of Arrival: Walk-In Information Source: Patient Primary Care Provider: [facility] Nursing and Triage Documentation Reviewed and Agree: Yes Does patient meet sepsis criteria?: No System Inflammatory Response Syndrome: Not Applicable Sepsis Protocol: For patient's 13 years and over: Temp is 96.8 and below OR 101 and greater Pulse >90 BPM Resp >20/minute Acutely Altered Mental Status Are patient's symptoms suggestive of a new infection, such as: -Pneumonia -Skin, Soft Tissue -Endocarditis -UTI -Bone, Joint Infection -Implantable Device -Acute Abdominal Infection -Wound Infection -Meningitis -Blood Stream Catheter Infection -Unknown Musculoskeletal Complaint Exam - Back Pain Complaint/Exam Mechanism of Injury: Reports: No known trauma Onset/Duration: 2 days Symptoms Are: Still present Timing: Constant Current Severity: Moderate Location: Reports: Diffuse (lower back ) Character: Reports: Sharp, Dull Aggravating: Reports: None Alleviating: Reports: None Associated Signs and Symptoms: Denies: Swelling, Redness, Bruising, Fever, Weakness, Numbness, Tingling, Abdominal pain, Flank pain, Bladder incontinence, Bowel incontinence, Weight loss, Pain with weight bearing TAD Risk Factors: Reports: None AAA Risk Factors: Reports: None Cauda Equina Risk Factors: Reports: None Epidural Abcess Risk Factors: Reports: None Focal Tenderness: Yes (lower back ) Paraspinal Muscle Tenderness: Yes Paraspinal Muscle Spasm: No Scoliosis: No SLR Test: Right Negative, Left Negative Hip Motion Testing Pain: Right Negative, Left Negative Focal Weakness: Present: None Focal Sensory Loss: Present: None Gait: Present: Normal Back Picture: 1 - area of pain Review of Systems - Review Of Systems Constitutional: Reports: No symptoms Eyes: Reports: No symptoms Ears, Nose, Mouth, Throat: Reports: No symptoms Respiratory: Reports: No symptoms Cardiac: Reports: No symptoms GI: Reports: No symptoms : Reports: No symptoms Musculoskeletal: Reports: Back pain Skin: Reports: No symptoms Neurological: Reports: Anxiety Endocrine: Reports: No symptoms Hematologic/Lymphatic: Reports: No symptoms All Other Systems: Reviewed and Negative Past Medical History - Past Medical History Previously Healthy: Yes Endocrine: Reports: None Cardiovascular: Reports: None Respiratory: Reports: None Hematological: Reports: None Gastrointestinal: Reports: None Genitourinary: Reports: UTI, Kidney stones, Urosepsis, Other (polycystic ovarian disease, polycystic kidneys ) Neuro/Psych: Reports: None Musculoskeletal: Reports: None Cancer: Reports: None Last Menstrual Period: 4 WEEKS AGO Other Pertinent Past Medical History: Drug abuse- Methamphetamind, marijuana - Surgical History General Surgical History: Reports: Cholecystectomy - Family History Family History: Reports: Unknown - Social History Smoking Status: Current every day smoker, Heavy tobacco smoker Hx Substance Use: Yes (METH FOUR TO FIVE DAYS) Alcohol Screening: None - Immunizations Tetanus Shot up to Date: Yes Physical Exam - Physical Exam Appearance: Ill-appearing Ill-appearing: Mild Pain Distress: Moderate Neck: Supple Respiratory: Airway patent, Breath sounds clear, Breath sounds equal, Respirations nonlabored Cardiovascular: Bradycardia GI/: Soft, Nontender, No masses, Bowel sounds normal, No Organomegaly Musculoskeletal: Normal strength Skin: Warm Neurological: Sensation intact, Motor intact, Reflexes intact, Cranial nerves intact, Alert, Oriented Psychiatric: Anxious Critical Care Note - Critical Care Note Total Time (mins): 0 Course - Course Orders, Labs, Meds: Lab Review 02/05/18 02:00 Urine Color Yellow Urine Clarity Clear Urine pH 6.0 Ur Specific [place] 1.025 Urine Protein 1+ Urine Glucose (UA) Negative Urine Ketones Negative Urine Blood 2+ Urine Nitrite Negative Urine Bilirubin 1+ Urine Urobilinogen 1.0 Ur Leukocyte Esterase Negative Urine Microscopic RBC 2-5 Ur Squamous Epith Cells 50-100 Orders Category Date Time Status UA [URINALYSIS C & S IF INDICATED] Stat LAB 02/05/18 02:00 Completed Ketorolac Tromethamine [Toradol] MEDS 02/05/18 02:05 Discontinued 60 mg IM ONCE STA Medications Discontinued Medications Generic Name Dose Route Start Last Admin Trade Name Freq PRN Reason Stop Dose Admin Ketorolac Tromethamine 60 mg 02/05/18 02:05 02/05/18 02:12 Toradol IM 02/05/18 02:06 Not Given ONCE STA Vital Signs: Temp Pulse Resp BP Pulse Ox 02/05/18 01:35 97.5 F L 55 L 18 143/79 H 96 Departure - Departure Time of Disposition: 02:08 Disposition: HOME SELF-CARE Discharge Problem: Back pain Qualifiers: Back pain location: low back pain Chronicity: acute Back pain laterality: bilateral Sciatica presence: without sciatica Qualified Code(s): M54.5 - Low back pain Instructions: Lower Back Exercises (ED) Condition: Stable Pt referred to PMD for follow-up: Yes IPMP verified?: No Additional Instructions: Take [place] medications as needed for lower back pain it is possible this is the beginning of menstrual cramps Allergies/Adverse Reactions: Allergies No Known Allergies Allergy (Verified 02/05/18 01:44) Home Medications: Ambulatory Orders Hydrocodone Bit/Acetaminophen [[place] 7.5-325] 1 each PO Q4-6H PRN 02/05/18 Disposition Discussed With: Patient
== END 2018-02-05 02:28 | disposition home or self-care (01) ==
LOC: ED 01:32
DX: M54.5 Low back pain (principal); R11.2 Nausea with vomiting, unspecified; R19.7 Diarrhea, unspecified; F17.210 Nicotine dependence, cigarettes, uncomplicated
CPT/HCPCS: 81001; 99283

== ENCOUNTER 2018-04-16 22:47 | Emergency (ER) ==
[2018-04-16 22:58] VITALS: BP 161/77; TEMP 99.1; BMI 28.0
[2018-04-16] MEDS ORDERED: DUONEB NEB STA (23:15)
[2018-04-16] MEDS ORDERED: PREDNISONE PO STA (23:20)
--- NOTE | 2018-04-16 23:39 | ED.PDOC ---
General ED Provider: Dr. JAG HOLLAND Chief Complaint: Respiratory Complaint Stated Complaint: Patient is a 37 year old female with cough and conjestion for few days. Admits to smoking 1 ppd. Denies any fever. Time Seen by Physician: 23:37 Mode of Arrival: Walk-In Information Source: Patient Nursing and Triage Documentation Reviewed and Agree: Yes Does patient meet sepsis criteria?: No System Inflammatory Response Syndrome: Not Applicable Sepsis Protocol: For patient's 13 years and over: Temp is 96.8 and below OR 101 and greater Pulse >90 BPM Resp >20/minute Acutely Altered Mental Status Are patient's symptoms suggestive of a new infection, such as: -Pneumonia -Skin, Soft Tissue -Endocarditis -UTI -Bone, Joint Infection -Implantable Device -Acute Abdominal Infection -Wound Infection -Meningitis -Blood Stream Catheter Infection -Unknown Review of Systems - Review Of Systems Constitutional: Reports: No symptoms Eyes: Reports: No symptoms Ears, Nose, Mouth, Throat: Reports: No symptoms Respiratory: Reports: Cough (conjestion. ), Short of air Cardiac: Reports: No symptoms GI: Reports: No symptoms : Reports: No symptoms Musculoskeletal: Reports: No symptoms Skin: Reports: No symptoms Neurological: Reports: No symptoms Endocrine: Reports: No symptoms Hematologic/Lymphatic: Reports: No symptoms All Other Systems: Reviewed and Negative Past Medical History - Past Medical History Previously Healthy: Yes Endocrine: Reports: None Cardiovascular: Reports: None Respiratory: Reports: None Hematological: Reports: None Gastrointestinal: Reports: None Genitourinary: Reports: UTI, Kidney stones, Urosepsis, Other (polycystic ovarian disease) Neuro/Psych: Reports: None Musculoskeletal: Reports: None Cancer: Reports: None Last Menstrual Period: 03/28/18 Other Pertinent Past Medical History: Drug abuse- Methamphetamine, marijuana - Surgical History General Surgical History: Reports: Cholecystectomy - Family History Family History: Reports: Unknown - Social History Smoking Status: Current every day smoker, Heavy tobacco smoker Hx Substance Use: No Alcohol Screening: None - Immunizations Tetanus Shot up to Date: No Physical Exam - Physical Exam Appearance: Ill-appearing Ill-appearing: Mild Eyes: GEOVANI, EOMI, Conjunctiva clear ENT: Ears normal, Nose normal, Oropharynx normal Neck: Supple Respiratory: Breath sounds diminished Cardiovascular: RRR, Pulses normal, No rub, No murmur GI/: Soft, Nontender, No masses, Bowel sounds normal, No Organomegaly Musculoskeletal: Normal strength, ROM intact, No edema, No calf tenderness Skin: Warm, Dry, Normal color Neurological: Sensation intact, Motor intact, Reflexes intact, Cranial nerves intact, Alert, Oriented Psychiatric: Anxious Critical Care Note - Critical Care Note Total Time (mins): 0 Course - Course Orders, Labs, Meds: Orders Category Date Time Status NEBULIZER TREATMENT Stat CARDIO 04/16/18 23:19 Completed Ipratropium/Albuterol Neb [Duoneb] MEDS 04/16/18 23:15 Discontinued 1 vial NEB ONCE STA Prednisone MEDS 04/16/18 23:20 Discontinued 40 mg PO ONCE STA Medications Discontinued Medications Generic Name Dose Route Start Last Admin Trade Name Freq PRN Reason Stop Dose Admin Albuterol/Ipratropium 1 vial 04/16/18 23:15 04/16/18 23:27 Duoneb NEB 04/16/18 23:16 1 vial ONCE STA Administration Prednisone 40 mg 04/16/18 23:20 04/16/18 23:36 Prednisone PO 04/16/18 23:21 40 mg ONCE STA Administration Vital Signs: Temp Pulse Resp BP Pulse Ox 04/16/18 22:49 99.1 F 96 H 20 161/77 H 98 Departure - Departure Time of Disposition: 23:39 Disposition: HOME SELF-CARE Discharge Problem: Acute bronchitis Qualifiers: Bronchitis organism: other organism Qualified Code(s): J20.8 - Acute bronchitis due to other specified organisms Instructions: Acute Bronchitis (ED) Condition: Stable Pt referred to PMD for follow-up: Yes IPMP verified?: No Additional Instructions: Take medications as prescribed Follow up with PCP in 3 days Stop medications Allergies/Adverse Reactions: Allergies No Known Allergies Allergy (Verified 04/20/18 18:23) Home Medications: Ambulatory Orders 1 [No Reported Medications] 04/20/18 Disposition Discussed With: Patient, Family
== END 2018-04-16 23:52 | disposition home or self-care (01) ==
LOC: ED 22:47
DX: J20.9 Acute bronchitis, unspecified (principal); F17.210 Nicotine dependence, cigarettes, uncomplicated
CPT/HCPCS: 94640; 99282

== ENCOUNTER 2018-04-20 18:14 | Emergency (ER) ==
[2018-04-20 18:26] VITALS: BP 145/86; TEMP 100.1; BMI 27.0
--- NOTE | 2018-04-20 18:49 | ED.PDOC ---
General ED Provider: Dr. ADALGISA HALLMAN-ER Chief Complaint: Urinary Problem Stated Complaint: i hvae frequent utis--im burning and going frequently Time Seen by Physician: 18:48 Mode of Arrival: Walk-In Information Source: Patient Exam Limitations: No limitations Nursing and Triage Documentation Reviewed and Agree: Yes Does patient meet sepsis criteria?: No System Inflammatory Response Syndrome: Not Applicable Sepsis Protocol: For patient's 13 years and over: Temp is 96.8 and below OR 101 and greater Pulse >90 BPM Resp >20/minute Acutely Altered Mental Status Are patient's symptoms suggestive of a new infection, such as: -Pneumonia -Skin, Soft Tissue -Endocarditis -UTI -Bone, Joint Infection -Implantable Device -Acute Abdominal Infection -Wound Infection -Meningitis -Blood Stream Catheter Infection -Unknown Complaint Exam - UTI Female Complaint/Exam Patient Complains of: Reports: Painful urination Onset/Duration: 4 days Symptoms Are: Still present Timing: Intermittent Initial Severity: Mild Current Severity: Mild Location of Pain: Reports: Suprapubic Associated Signs and Symptoms: Reports: Fever Patient Rh Status: Unknown CVA Tenderness: No Suprapubic Tenderness: No Differential Diagnoses: Cystitis Review of Systems - Review Of Systems Constitutional: Reports: No symptoms Eyes: Reports: No symptoms Ears, Nose, Mouth, Throat: Reports: No symptoms Respiratory: Reports: No symptoms Cardiac: Reports: No symptoms GI: Reports: No symptoms : Reports: Burning, Dysuria, Frequency Musculoskeletal: Reports: No symptoms Skin: Reports: No symptoms Neurological: Reports: No symptoms Endocrine: Reports: No symptoms Hematologic/Lymphatic: Reports: No symptoms All Other Systems: Reviewed and Negative Past Medical History - Past Medical History Previously Healthy: Yes Endocrine: Reports: None Cardiovascular: Reports: None Respiratory: Reports: None Hematological: Reports: None Gastrointestinal: Reports: None Genitourinary: Reports: UTI, Kidney stones, Urosepsis, Other (polycystic ovarian disease) Neuro/Psych: Reports: None Musculoskeletal: Reports: None Cancer: Reports: None Last Menstrual Period: 03/28/18 Other Pertinent Past Medical History: Drug abuse- Methamphetamind, marijuana - Surgical History General Surgical History: Reports: Cholecystectomy - Family History Family History: Reports: Unknown - Social History Smoking Status: Current every day smoker, Heavy tobacco smoker Hx Substance Use: Yes (METH FOUR TO FIVE DAYS) Alcohol Screening: None Physical Exam - Physical Exam Appearance: Well-appearing, No pain distress, Well-nourished Eyes: GEOVANI, EOMI, Conjunctiva clear ENT: Ears normal, Nose normal, Oropharynx normal Neck: Supple Respiratory: Airway patent, Breath sounds clear, Breath sounds equal, Respirations nonlabored Cardiovascular: RRR, Pulses normal, No rub, No murmur GI/: Soft, Nontender, No masses, Bowel sounds normal, No Organomegaly Musculoskeletal: Normal strength, ROM intact, No edema, No calf tenderness Skin: Warm, Dry, Normal color Neurological: Sensation intact, Motor intact, Reflexes intact, Cranial nerves intact, Alert, Oriented Psychiatric: Affect appropriate, Mood appropriate Critical Care Note - Critical Care Note Total Time (mins): 0 Course - Course Orders, Labs, Meds: Lab Review 04/20/18 18:30 Urine Color Yellow Urine Clarity Clear Urine pH 5.5 Ur Specific [place] 1.020 Urine Protein Negative Urine Glucose (UA) Negative Urine Ketones Negative Urine Blood Trace-lysed Urine Nitrite Negative Urine Bilirubin Negative Urine Urobilinogen 0.2 Ur Leukocyte Esterase Negative Urine Microscopic RBC 2-5 Urine Microscopic WBC 0-2 Ur Squamous Epith Cells 0-2 Urine Bacteria Trace Orders Category Date Time Status URINALYSIS C & S IF INDICATED Stat LAB 04/20/18 18:30 Received URINE CULTURE Stat LAB 04/20/18 18:30 Received Vital Signs: Temp Pulse Resp BP Pulse Ox 04/20/18 18:18 100.1 F H 76 20 145/86 H 95 Departure - Departure Time of Disposition: 18:49 Disposition: HOME SELF-CARE Discharge Problem: Urinary symptoms Instructions: Urinary Urgency and Frequency (DC) Condition: Good Pt referred to PMD for follow-up: Yes IPMP verified?: No Additional Instructions: bactrim ds bid x 7 days--f/u with pcp for urine culture Allergies/Adverse Reactions: Allergies No Known Allergies Allergy (Verified 04/20/18 18:23) Home Medications: Ambulatory Orders 1 [No Reported Medications] 04/20/18 Disposition Discussed With: Patient
== END 2018-04-20 19:01 | disposition home or self-care (01) ==
LOC: ED 18:14
DX: R35.0 Frequency of micturition (principal); R39.15 Urgency of urination; R30.0 Dysuria; Z87.440 Personal history of urinary (tract) infections; F17.210 Nicotine dependence, cigarettes, uncomplicated
CPT/HCPCS: 81001; 87086; 99283

== ENCOUNTER 2018-04-26 18:00 | Emergency (ER) ==
[2018-04-26 18:58] VITALS: BP 157/88; TEMP 98.8; BMI 28.6
[2018-04-26] MEDS ORDERED: NORFLEX IM STA (19:19)
[2018-04-26] MEDS ORDERED: TORADOL IM STA (19:19)
--- NOTE | 2018-04-26 19:22 | ED.PDOC ---
General ED Provider: Dr. ADALGISA HALLMAN-ER Chief Complaint: Headache Stated Complaint: i was at work and my head hurt and i am dizzy Time Seen by Physician: 19:20 Mode of Arrival: Walk-In Information Source: Patient Exam Limitations: No limitations Nursing and Triage Documentation Reviewed and Agree: Yes Does patient meet sepsis criteria?: No System Inflammatory Response Syndrome: Not Applicable Sepsis Protocol: For patient's 13 years and over: Temp is 96.8 and below OR 101 and greater Pulse >90 BPM Resp >20/minute Acutely Altered Mental Status Are patient's symptoms suggestive of a new infection, such as: -Pneumonia -Skin, Soft Tissue -Endocarditis -UTI -Bone, Joint Infection -Implantable Device -Acute Abdominal Infection -Wound Infection -Meningitis -Blood Stream Catheter Infection -Unknown Neurological Complaint Exam - Headache Complaint/Exam Onset: Gradual Duration: 2 hrs Symptoms Are: Still present Timing: Constant Worst Headache Ever: No Initial Severity: Mild Current Severity: Moderate Location: Diffuse Character: Reports: Dull, Throbbing, Pressure, Typical headache Aggravating: Reports: None Associated Signs and Symptoms: Reports: Neck pain Related History: Denies: Recent trauma, Remote trauma Related Surgical History: Reports: None SAH Risk Factors: Reports: None Meningitis Risk Factors: Reports: None Temporal Arteritis Risk Factors: Reports: Female, Normal Head CT Within Last 12 Months: No Fundoscopic Exam: Present: Normal Findings Papilledema Present: No Temporal Artery Tenderness: Present: None Sinus Tenderness: Present: None TMJ Tenderness: Present: None Glascow Coma Scale (see protocol): 15 Meningeal Signs Positive: No Pain on Passive Flexion-Positive Kernig's: No ROM Limited In: No Limitiations Focal Weakness: Present: None Focal Sensory Loss: Present: None Gait: Normal Nystagmus Present: No Gag Reflex Present: Yes [id number]: Normal Findings Romberg Test Positive: No Babinski Sign: Negative Right, Negative Left Heel to Toe Normal: Yes Differential Diagnoses: Sinus Headache, Tension Headache Review of Systems - Review Of Systems Constitutional: Reports: No symptoms Eyes: Reports: No symptoms Ears, Nose, Mouth, Throat: Reports: No symptoms Respiratory: Reports: No symptoms Cardiac: Reports: No symptoms GI: Reports: No symptoms : Reports: No symptoms Musculoskeletal: Reports: No symptoms Skin: Reports: No symptoms Neurological: Reports: Headache Endocrine: Reports: No symptoms Hematologic/Lymphatic: Reports: No symptoms All Other Systems: Reviewed and Negative Past Medical History - Past Medical History Previously Healthy: Yes Endocrine: Reports: None Cardiovascular: Reports: None Respiratory: Reports: None Hematological: Reports: None Gastrointestinal: Reports: None Genitourinary: Reports: UTI, Kidney stones, Urosepsis, Other (polycystic ovarian disease) Neuro/Psych: Reports: None Musculoskeletal: Reports: None Cancer: Reports: None Last Menstrual Period: this week Other Pertinent Past Medical History: Drug abuse- Methamphetamind, marijuana - Surgical History General Surgical History: Reports: Cholecystectomy - Family History Family History: Reports: Unknown - Social History Smoking Status: Current every day smoker, Heavy tobacco smoker Hx Substance Use: Yes Alcohol Screening: None Physical Exam - Physical Exam Appearance: Well-appearing, No pain distress, Well-nourished Pain Distress: Mild Eyes: GEOVANI, EOMI, Conjunctiva clear ENT: Ears normal, Nose normal, Oropharynx normal Neck: Supple Respiratory: Airway patent, Breath sounds clear, Breath sounds equal, Respirations nonlabored Cardiovascular: RRR, Pulses normal, No rub, No murmur GI/: Soft, Nontender, No masses, Bowel sounds normal, No Organomegaly Musculoskeletal: Normal strength, ROM intact, No edema, No calf tenderness Skin: Warm, Dry, Normal color Neurological: Sensation intact, Motor intact, Reflexes intact, Cranial nerves intact, Alert, Oriented Psychiatric: Affect appropriate, Mood appropriate Interpretation - Radiology Interpretation Radiology Interpretation By: Radiologist Radiology Results: Negative Exam Interpreted: CT Scan Re-Evaluation - Re-Evaluation Time of Re-Evaluation: 20:49 Status: Improved Vital Signs Stable: Yes Pain Level: 0 Appearance: NAD Lungs: Clear Skin: Warm and Dry Neuro: Alert and Oriented X3 CV: RRR Critical Care Note - Critical Care Note Total Time (mins): 0 Course - Course Hematology/Chemistry: 04/26/18 19:29 04/26/18 19:29 Orders, Labs, Meds: Lab Review 04/26/18 04/26/18 04/26/18 19:23 19:29 19:29 WBC 11.90 H RBC 4.39 Hgb 13.3 Hct 38.5 MCV 87.7 MCH 30.3 MCHC 34.5 RDW Coeff of April 12.9 Plt Count 253 Immature Gran % (Auto) 0.3 Neut % (Auto) 79.9 Lymph % (Auto) 13.9 [place] % (Auto) 5.2 Eos % (Auto) 0.4 Baso % (Auto) 0.3 Immature Gran # (Auto) 0.0 Neut # (Auto) 9.5 H Lymph # (Auto) 1.7 [place] # (Auto) 0.6 Eos # (Auto) 0.1 Baso # (Auto) 0.0 ESR 3 Sodium 135.9 L Potassium 4.10 Chloride 103.5 Carbon Dioxide 31.2 H Anion Gap 5.30 BUN 10.3 Creatinine 0.71 Estimated GFR (MDRD) 93.00 BUN/Creatinine Ratio 14.50 Glucose 107.5 H Calcium 9.08 Total Bilirubin 0.32 AST 41.2 H ALT 16.5 Alkaline Phosphatase 38.9 Total Protein 7.05 Albumin 4.09 Globulin 2.96 Albumin/Globulin Ratio 1.38 Urine Test Negative Orders Category Date Time Status CBC W/ AUTO DIFF Stat LAB 04/26/18 19:29 Completed COMPREHENSIVE METABOLIC PANEL Stat LAB 04/26/18 19:29 Completed ESR Stat LAB 04/26/18 19:29 Completed URINE Stat LAB 04/26/18 19:23 Completed Ketorolac Tromethamine [Toradol] MEDS 04/26/18 19:19 Discontinued 60 mg IM ONCE STA Orphenadrine Citrate [Norflex] MEDS 04/26/18 19:19 Discontinued 60 mg IM ONCE STA CT HEAD W/O CONTRAST Stat RADS 04/26/18 19:19 Completed Medications Discontinued Medications Generic Name Dose Route Start Last Admin Trade Name Freq PRN Reason Stop Dose Admin Ketorolac Tromethamine 60 mg 04/26/18 19:19 04/26/18 19:43 Toradol IM 04/26/18 19:20 60 mg ONCE STA Administration Orphenadrine Citrate 60 mg 04/26/18 19:19 04/26/18 19:45 Norflex IM 04/26/18 19:20 60 mg ONCE STA Administration Vital Signs: Temp Pulse Resp BP Pulse Ox 04/26/18 18:52 98.8 F 84 20 157/88 H 96 Departure - Departure Time of Disposition: 20:49 Disposition: HOME SELF-CARE Discharge Problem: Headache Instructions: Acute Headache (ED) Condition: Good Pt referred to PMD for follow-up: Yes IPMP verified?: No Additional Instructions: f/u with pcp Allergies/Adverse Reactions: Allergies No Known Allergies Allergy (Verified 04/26/18 18:59) Home Medications: Ambulatory Orders 1 [No Reported Medications] 04/20/18 Disposition Discussed With: Patient
[2018-04-26 19:36] LABS: URINE PREGNANCY TEST NEGATIVE (NEGATIVE)
--- NOTE | 2018-04-26 20:47 | CT ---
EXAM: CT head without contrast HISTORY: headache COMPARISON: CT head 02/03/2018 and 07/28/2015 TECHNIQUE: Serial axial images of the brain were obtained from the skull base to the vertex without IV contrast. FINDINGS: The ventricles, cisterns and sulci are normal. The colon-white matter junction is well crystal ntained. No midline shift or mass is identified. There is no abnormal intra or extra-axial fluid co llection. The paranasal sinuses and mastoid air cells are clear. The osseous calvarium is intact. IMPRESSION: No acute intracranial abnormality or hemorrhage.
== END 2018-04-26 20:53 | disposition home or self-care (01) ==
LOC: ED 18:51
DX: R51 Headache (principal); R42 Dizziness and giddiness; F17.210 Nicotine dependence, cigarettes, uncomplicated
CPT/HCPCS: 36415; 80053; 81025; 85025; 85651; 96372; 99283

== ENCOUNTER 2018-09-11 14:03 | Emergency (ER) ==
[2018-09-11 14:09] VITALS: BP 148/98; TEMP 98.8; BMI 27.1
--- NOTE | 2018-09-11 15:04 | ED.PDOC ---
General ED Provider: Dr. KASIE FERREIRA Chief Complaint: Ankle Pain/Injury Stated Complaint: left ankle pain left foot pain chronic Time Seen by Physician: 14:00 (this issue is ongoing to 3 months no new injury) Mode of Arrival: Walk-In Information Source: Patient Exam Limitations: No limitations Nursing and Triage Documentation Reviewed and Agree: Yes Does patient meet sepsis criteria?: No System Inflammatory Response Syndrome: Not Applicable Sepsis Protocol: For patient's 13 years and over: Temp is 96.8 and below OR 101 and greater Pulse >90 BPM Resp >20/minute Acutely Altered Mental Status Are patient's symptoms suggestive of a new infection, such as: -Pneumonia -Skin, Soft Tissue -Endocarditis -UTI -Bone, Joint Infection -Implantable Device -Acute Abdominal Infection -Wound Infection -Meningitis -Blood Stream Catheter Infection -Unknown Musculoskeletal Complaint Exam - Ankle/Foot Complaint/Exam Location of Injury: Reports: Left, Ankle Mechanism of Injury: Reports: Trauma (3 months ago) Onset/Duration: 90 days Onset of Pain: Reports: Weeks Initial Severity: Mild Current Severity: Mild Location: Reports: Discrete Character: Reports: Aching Alleviating: Reports: Rest Aggravating: Reports: Movement Able to Bear Weight: Yes Associated Signs and Symptoms: Denies: Swelling, Redness, Bruising, Fever, Weakness, Numbness, Tingling Related History: Reports: Similar episode Gout Risk Factors: Reports: None Related Surgical History: Reports: None Lower Extremity Findings: Absent: Swelling, Ecchymosis, Abnormal contour, Rotation, Ligamentous instability, Laceration, Erythema, Warmth Tenderness: Present: Lateral malleolus Differential Diagnosis: Closed Fracture, Sprain, Strain Review of Systems - Review Of Systems Constitutional: Reports: No symptoms Eyes: Reports: No symptoms Ears, Nose, Mouth, Throat: Reports: No symptoms Respiratory: Reports: No symptoms Cardiac: Reports: No symptoms GI: Reports: No symptoms : Reports: No symptoms Musculoskeletal: Reports: Joint pain Skin: Reports: No symptoms Neurological: Reports: No symptoms Endocrine: Reports: No symptoms Hematologic/Lymphatic: Reports: No symptoms All Other Systems: Reviewed and Negative Past Medical History - Past Medical History Previously Healthy: Yes Endocrine: Reports: None Cardiovascular: Reports: None Respiratory: Reports: None Hematological: Reports: None Gastrointestinal: Reports: None Genitourinary: Reports: UTI, Kidney stones, Urosepsis, Other (polycystic ovarian disease) Neuro/Psych: Reports: None Musculoskeletal: Reports: None Cancer: Reports: None Last Menstrual Period: mid august Other Pertinent Past Medical History: Drug abuse- Methamphetamind, marijuana - Surgical History General Surgical History: Reports: Cholecystectomy - Family History Family History: Reports: Unknown - Social History Smoking Status: Current every day smoker, Heavy tobacco smoker Hx Substance Use: Yes Alcohol Screening: None Physical Exam - Physical Exam Appearance: Well-appearing, No pain distress, Well-nourished Eyes: GEOVANI, EOMI, Conjunctiva clear ENT: Ears normal, Nose normal, Oropharynx normal Respiratory: Airway patent, Breath sounds clear, Breath sounds equal, Respirations nonlabored Cardiovascular: RRR, Pulses normal, No rub, No murmur GI/: Tender (left ankle) Musculoskeletal: Normal strength, ROM intact, No edema, No calf tenderness Skin: Warm, Dry, Normal color Neurological: Sensation intact, Motor intact, Reflexes intact, Cranial nerves intact, Alert, Oriented Psychiatric: Affect appropriate, Mood appropriate Critical Care Note - Critical Care Note Total Time (mins): 0 Course - Course Orders, Labs, Meds: Orders Category Date Time Status ANKLE, LEFT MIN 3 VIEWS Stat RADS 09/11/18 14:55 Completed FOOT, LEFT 3 VIEWS Stat RADS 09/11/18 14:55 Completed Vital Signs: Temp Pulse Resp BP Pulse Ox 09/11/18 14:03 98.8 F 94 H 20 148/98 H 96 Departure - Departure Time of Disposition: 16:26 (mri discussed pt must see [facility]) Disposition: HOME SELF-CARE Discharge Problem: Ankle pain Ankle sprain Qualifiers: Encounter type: initial encounter Laterality: left Instructions: Ankle Sprain (ED) Condition: Good Pt referred to PMD for follow-up: Yes IPMP verified?: No Additional Instructions: Follow up with your doctor if problems persist. You may need an orthopaedic referral. Prescriptions: Hydrocodone/Acetaminophen [[place] 10-325 Tablet] 1 each PO Q8HR #12 tablet Allergies/Adverse Reactions: Allergies No Known Allergies Allergy (Verified 09/11/18 14:11) Home Medications: Ambulatory Orders Hydrocodone/Acetaminophen [[place] 10-325 Tablet] 1 each PO Q8HR #12 tablet Disposition Discussed With: Patient
--- NOTE | 2018-09-11 15:32 | DI ---
EXAM: Three views of the left ankle. History: Left ankle pain. Findings: No acute fracture or dislocation. No abnormal calcifications or radiopaque foreign bodies . Joint spaces are preserved. Impression: Unremarkable exam
--- NOTE | 2018-09-11 15:32 | DI ---
EXAM: Three views of the left foot. History: Left foot pain. Findings: No acute fracture or dislocation. No abnormal calcifications or radiopaque foreign bodies . Joint spaces are preserved. Impression: Unremarkable exam
== END 2018-09-11 15:57 | disposition home or self-care (01) ==
LOC: ED 14:03
DX: M25.572 Pain in left ankle and joints of left foot (principal); G89.29 Other chronic pain; F17.210 Nicotine dependence, cigarettes, uncomplicated
CPT/HCPCS: 99283

== ENCOUNTER 2018-10-04 11:04 | Emergency (ER) ==
[2018-10-04 11:17] VITALS: BP 129/85; TEMP 98.6; BMI 27.8
--- NOTE | 2018-10-04 11:50 | ED.PDOC ---
General ED Provider: Dr. RACHAEL HAWKINS Chief Complaint: Sore Throat Stated Complaint: Patient is 7 weeks gestation based on home preg test.Complains for LLQ pain.No bleed,Another complaint is for sore throat.No PCN allergy. Time Seen by Physician: 11:15 Mode of Arrival: Walk-In Information Source: Patient Exam Limitations: No limitations Nursing and Triage Documentation Reviewed and Agree: Yes Does patient meet sepsis criteria?: No System Inflammatory Response Syndrome: Not Applicable Sepsis Protocol: For patient's 13 years and over: Temp is 96.8 and below OR 101 and greater Pulse >90 BPM Resp >20/minute Acutely Altered Mental Status Are patient's symptoms suggestive of a new infection, such as: -Pneumonia -Skin, Soft Tissue -Endocarditis -UTI -Bone, Joint Infection -Implantable Device -Acute Abdominal Infection -Wound Infection -Meningitis -Blood Stream 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 Symptoms Are: Still present Timing: Constant Expected Date of Delivery: 05/30/19 Related Surgical History: None External Exam: Present: Normal findings Differential Diagnoses: UTI, Other Review of Systems - Review Of Systems Constitutional: Reports: No symptoms Eyes: Reports: No symptoms Ears, Nose, Mouth, Throat: Reports: No symptoms Respiratory: Reports: Cough, Other Cardiac: Reports: No symptoms GI: Reports: Abdominal pain : Reports: No symptoms Musculoskeletal: Reports: No symptoms Skin: Reports: No symptoms Neurological: Reports: No symptoms Endocrine: Reports: No symptoms Hematologic/Lymphatic: Reports: No symptoms All Other Systems: Reviewed and Negative Past Medical History - Past Medical History Previously Healthy: Yes Endocrine: Reports: None Cardiovascular: Reports: None Respiratory: Reports: None Hematological: Reports: None Gastrointestinal: Reports: None Genitourinary: Reports: UTI, Kidney stones, Urosepsis, Other (polycystic ovarian disease) Neuro/Psych: Reports: None Musculoskeletal: Reports: None Cancer: Reports: None Last Menstrual Period: 08/25/18 Other Pertinent Past Medical History: Drug abuse- Methamphetamind, marijuana - Surgical History General Surgical History: Reports: Cholecystectomy - Family History Family History: Reports: Unknown - Social History Smoking Status: Current every day smoker, Heavy tobacco smoker Hx Substance Use: Yes Alcohol Screening: None Physical Exam - Physical Exam Appearance: Well-appearing Ill-appearing: None Pain Distress: Mild Eyes: GEOVANI ENT: Ears normal Neck: Supple Respiratory: Airway patent, Breath sounds clear Cardiovascular: RRR GI/: Soft, Nontender Musculoskeletal: Normal strength Skin: Warm Neurological: Sensation intact Critical Care Note - Critical Care Note Total Time (mins): 0 Course - Course Hematology/Chemistry: 10/04/18 12:15 10/04/18 12:15 Orders, Labs, Meds: Lab Review 10/04/18 10/04/18 10/04/18 11:45 12:15 12:15 WBC 9.60 RBC 4.56 Hgb 13.7 Hct 40.3 MCV 88.4 MCH 30.0 MCHC 34.0 RDW Coeff of April 12.6 Plt Count 272 Immature Gran % (Auto) 0.3 Neut % (Auto) 75.0 Lymph % (Auto) 17.8 [place] % (Auto) 6.4 Eos % (Auto) 0.2 Baso % (Auto) 0.3 Immature Gran # (Auto) 0.0 Neut # (Auto) 7.2 H Lymph # (Auto) 1.7 [place] # (Auto) 0.6 Eos # (Auto) 0.0 Baso # (Auto) 0.0 Sodium 136.3 Potassium 3.50 Chloride 102.2 Carbon Dioxide 24.3 Anion Gap 13.30 BUN 13.7 Creatinine 0.71 Estimated GFR (MDRD) 93.00 BUN/Creatinine Ratio 19.29 Glucose 115.8 H Calcium 8.96 Total Bilirubin 0.64 AST 23.0 ALT 19.2 Alkaline Phosphatase 49.9 Total Protein 7.72 Albumin 4.38 Globulin 3.34 Albumin/Globulin Ratio 1.31 HCG, Quant 67807.000 Orders Category Date Time Status CBC W/ AUTO DIFF Stat LAB 10/04/18 12:15 Completed CMP [COMPREHENSIVE METABOLIC PANEL] Stat LAB 10/04/18 12:15 Completed HCG,QUANTITATIVE Stat LAB 10/04/18 11:45 Completed RAPID STREP SCREEN [MOLECULAR GROUP A STREP] Stat LAB 10/04/18 11:22 Completed ULTRASOUND OB/TV [U/S OB/TV] Stat RADS 10/04/18 11:35 Completed Vital Signs: Temp Pulse Resp BP Pulse Ox 10/04/18 11:05 98.6 F 100 H 20 129/85 99 Departure - Departure Time of Disposition: 14:42 Disposition: HOME SELF-CARE Discharge Problem: Normal , Normal in multigravida, Normal in first trimester Instructions: (ED) Condition: Good Pt referred to PMD for follow-up: Yes IPMP verified?: Yes Allergies/Adverse Reactions: Allergies No Known Allergies Allergy (Verified 10/04/18 11:08) Home Medications: Ambulatory Orders 1 [No Reported Medications] 10/04/18 Disposition Discussed With: Patient
--- NOTE | 2018-10-04 13:21 | US ---
Exam: OB ultrasound performed with color colon-scale and duplex imaging with spectral waveform analys is. Comparison: CT abdomen pelvis performed 11/29/2017. Reason for exam: Pelvic pain. FINDINGS: The uterus measures 9.3 x 5.6 x 6.0 cm Hypodensity is seen within the endometrium that may represent a forming gestational sac. Reported last menstrual period 08/25/2018 with a estimated gestational age based on LMP 5 weeks 5 day s. Right ovary measures 4.4 x 2.3 x 2.6 cm with normal appearing vascularity. There is a 2.6 x 2.3 x 2.4 cm cystic structure (probable corpus luteum) in the right ovary. Left ovary measures approximately 3.0 x 2.1 x 1.4 cm with normal appearing vascularity. No free fluid is seen within the cul-de-sac. Impression: 1. Likely forming gestational sac. Imaging findings are likely limited secondary to gestational age based on patient's reported last menstrual period. 2. Recommend follow up imaging and outpatient SUPERINTENDENT OF GENERATION consultation
== END 2018-10-04 14:53 | disposition home or self-care (01) ==
LOC: ED 11:04
DX: J02.9 Acute pharyngitis, unspecified (principal); R10.32 Left lower quadrant pain; Z34.81 Encounter for supervision of other normal pregnancy, first trimester; Z87.440 Personal history of urinary (tract) infections; Z87.442 Personal history of urinary calculi; F17.210 Nicotine dependence, cigarettes, uncomplicated
CPT/HCPCS: 36415; 80053; 84702; 85025; 87651; 99283

== ENCOUNTER 2018-11-19 18:55 | Emergency (ER) ==
[2018-11-19 18:59] VITALS: BP 138/85; TEMP 97.7; BMI 27.4
[2018-11-19] MEDS ORDERED: SODIUM CHLORIDE 1,000 ML IV STA (19:20)
[2018-11-19] MEDS ORDERED: TORADOL IVP STA (19:20)
--- NOTE | 2018-11-19 19:20 | ED.PDOC ---
General ED Provider: Dr. ADALGISA HAILE MD Chief Complaint: Urinary Problem Stated Complaint: FLANK PAIN Time Seen by Physician: 19:20 Mode of Arrival: Walk-In Information Source: Patient Exam Limitations: No limitations Nursing and Triage Documentation Reviewed and Agree: Yes Does patient meet sepsis criteria?: No If yes, has appropriate treatment been initiated?: Yes System Inflammatory Response Syndrome: Not Applicable Sepsis Protocol: For patient's 13 years and over: Temp is 96.8 and below OR 101 and greater Pulse >90 BPM Resp >20/minute Acutely Altered Mental Status Are patient's symptoms suggestive of a new infection, such as: -Pneumonia -Skin, Soft Tissue -Endocarditis -UTI -Bone, Joint Infection -Implantable Device -Acute Abdominal Infection -Wound Infection -Meningitis -Blood Stream Catheter Infection -Unknown Review of Systems - Review Of Systems Constitutional: Reports: No symptoms Eyes: Reports: No symptoms Ears, Nose, Mouth, Throat: Reports: No symptoms Respiratory: Reports: No symptoms Cardiac: Reports: No symptoms GI: Reports: No symptoms : Reports: Flank pain, Hematuria, Pain Musculoskeletal: Reports: No symptoms Skin: Reports: No symptoms Neurological: Reports: No symptoms Endocrine: Reports: No symptoms Hematologic/Lymphatic: Reports: No symptoms All Other Systems: Reviewed and Negative Past Medical History - Past Medical History Previously Healthy: Yes Endocrine: Reports: None Cardiovascular: Reports: None Respiratory: Reports: None Hematological: Reports: None Gastrointestinal: Reports: None Genitourinary: Reports: UTI, Kidney stones, Urosepsis, Other (polycystic ovarian disease) Neuro/Psych: Reports: None Musculoskeletal: Reports: None Cancer: Reports: None Last Menstrual Period: current Other Pertinent Past Medical History: Drug abuse- Methamphetamind, marijuana - Surgical History General Surgical History: Reports: Cholecystectomy - Family History Family History: Reports: Unknown - Social History Smoking Status: Current every day smoker, Heavy tobacco smoker Hx Substance Use: No Alcohol Screening: None - Immunizations Tetanus Shot up to Date: Yes Physical Exam - Physical Exam Appearance: Obese Pain Distress: Mild Eyes: GEOVANI, EOMI, Conjunctiva clear ENT: Ears normal, Nose normal, Oropharynx normal Respiratory: Airway patent, Breath sounds clear, Breath sounds equal, Respirations nonlabored Cardiovascular: RRR, Pulses normal, No rub, No murmur GI/: Soft, Nontender, No masses, Bowel sounds normal, No Organomegaly Musculoskeletal: Normal strength, ROM intact, No edema, No calf tenderness Skin: Warm, Dry, Normal color Neurological: Sensation intact, Motor intact, Reflexes intact, Cranial nerves intact, Alert, Oriented Psychiatric: Affect appropriate, Mood appropriate Critical Care Note - Critical Care Note Total Time (mins): 0 Course - Course Hematology/Chemistry: 11/19/18 19:33 Orders, Labs, Meds: Lab Review 11/19/18 11/19/18 19:07 19:33 WBC 8.23 RBC 4.00 L Hgb 12.1 Hct 35.7 L MCV 89.3 MCH 30.3 MCHC 33.9 RDW Coeff of April 12.4 Plt Count 251 Immature Gran % (Auto) 0.4 Neut % (Auto) 59.6 Lymph % (Auto) 30.3 [place] % (Auto) 6.9 Eos % (Auto) 2.3 Baso % (Auto) 0.5 Immature Gran # (Auto) 0.0 Neut # (Auto) 4.9 Lymph # (Auto) 2.5 [place] # (Auto) 0.6 Eos # (Auto) 0.2 Baso # (Auto) 0.0 Urine Color Yellow Urine Clarity Clear Urine pH 5.5 Ur Specific [place] 1.015 Urine Protein Negative Urine Glucose (UA) Negative Urine Ketones Negative Urine Blood 2+ Urine Nitrite Negative Urine Bilirubin Negative Urine Urobilinogen 0.2 Ur Leukocyte Esterase Negative Urine Microscopic RBC 2-5 Ur Squamous Epith Cells 2-5 Orders Category Date Time Status IV [ED IV/MEDIPORT/POWERPORT] .ONCE EMERGENCY 11/19/18 19:20 Active CBC W/ AUTO DIFF Stat LAB 11/19/18 19:33 Completed UA [URINALYSIS C & S IF INDICATED] Stat LAB 11/19/18 19:07 Completed 0.9 % Sodium Chloride [Saline Flush] MEDS 11/19/18 19:20 Ordered 1 syr IVF PRN PRN Carisoprodol [Soma] MEDS 11/19/18 20:18 Discontinued 350 mg PO ONCE STA Ketorolac Tromethamine [Toradol] MEDS 11/19/18 19:20 Discontinued 60 mg IVP ONCE STA Methylprednisolone Sod Succ/Pf [Solu-Medrol 40 mg] MEDS 11/19/18 20:56 Discontinued 40 mg IVP ONCE STA Sodium Chloride 0.9% [Sodium Chloride] 1,000 ml MEDS 11/19/18 19:[address] ABDOMEN/PELVIS WO CONTRAST Stat RADS 11/19/18 19:22 Completed Medications Generic Name Dose Route Start Last Admin Trade Name Freera PRN Reason Stop Dose Admin Sodium Chloride 1 syr 11/19/18 19:20 11/19/18 19:43 Saline Flush IVF 1 syr PRN PRN Administration To flush IV Discontinued Medications Generic Name Dose Route Start Last Admin Trade Name Rosales PRN Reason Stop Dose Admin Carisoprodol 350 mg 11/19/18 20:18 11/19/18 20:35 Soma PO 11/19/18 20:19 Not Given ONCE STA Sodium Chloride 1,000 mls @ 1,000 mls/hr 11/19/18 19:20 11/19/18 19:43 Sodium Chloride IV 11/19/18 20:19 1,000 mls/hr BOLUS STA Administration Ketorolac Tromethamine 60 mg 11/19/18 19:20 11/19/18 19:43 Toradol IVP 11/19/18 19:21 60 mg ONCE STA Administration Methylprednisolone Sodium Succinate 40 mg 11/19/18 20:56 11/19/18 21:03 Solu-Medrol 40 Mg IVP 11/19/18 20:57 40 mg ONCE STA Administration Vital Signs: Temp Pulse Resp BP Pulse Ox 11/19/18 18:56 97.7 F 89 16 138/85 97 Departure - Departure Time of Disposition: 21:17 Disposition: HOME SELF-CARE Discharge Problem: Polycystic kidney disease Instructions: Autosomal Dominant Polycystic Kidney Disease (ED) Condition: Good Pt referred to PMD for follow-up: Yes IPMP verified?: No Allergies/Adverse Reactions: Allergies No Known Allergies Allergy (Verified 11/19/18 18:59) Home Medications: Ambulatory Orders 1 [No Reported Medications] 10/04/18 Transfer Form Completed: Yes Disposition Discussed With: Patient
[2018-11-19] MEDS: SOMA PO STA ×2 (20:34→20:35)
[2018-11-19] MEDS ORDERED: SOLU-MEDROL 40 MG IVP STA (20:56)
--- NOTE | 2018-11-19 20:57 | CT ---
EXAM: CT abdomen pelvis without contrast HISTORY: Hematuria, left flank pain. History of polycystic kidney disease COMPARISON: 11/29/2017 TECHNIQUE: Serial axial images of the abdomen pelvis were performed from the lung bases through the inferior pelvis without contrast. Axial scans acquired 3 mm slice thicknesses. Coronal and sagittal sequences completed. FINDINGS: Abdomen. Images of the lower thorax show no pulmonary infiltrate. There is no intraperitoneal free air. The liver, spleen, pancreas, adrenal glands are unremarkable. Stable small cysts right lobe of the liver as large as 1.54 cm There is no renal calculus. The kidneys are enlarged with multiple cysts consis tent with polycystic kidney disease. There are small areas of increased attenuation suggesting prote inaceous or hemorrhagic cysts. The largest right kidney inferior pole 1.45 cm. There are multiple a dditional small areas of increased attenuation mid and inferior pole of the left kidney, largest 1.04 cm inferior pole of the left kidney. There is no obstruction of either ureter. No obvious hemorrha ge or calcification/stone within the bladder. Mild thickening bladder wall suggested, correlate clin ically regarding UTI. There is no bowel obstruction. Appendix normal. There is dense stool seen th roughout portions of the colon, correlate regarding constipation. Pelvis. Uterus enlarged. There is some fluid or decreased density at the level endometrium, 1.7 cm diameter. No free fluid seen in the pelvis. No hernia. Skeletal structures. Vertebral body heights normal. There is some sclerosis involving the right gre ater left SI joint, possible sacroiliitis. IMPRESSION: Polycystic kidneys. No obstruction of either ureter.There are small areas of increased attenuation suggesting proteinaceous or hemorrhagic cysts. The largest right kidney inferior pole 1. 45 cm. There are multiple additional small areas of increased attenuation mid and inferior pole of t he left kidney, largest 1.04 cm inferior pole of the left kidney. Possibility of small renal neoplas m not excluded. Follow-up CT or ultrasound in 3-month suggested to further assess. Thickening of th e bladder wall suggested. Correlate clinically regarding cystitis or UTI. No bowel obstruction. Appendix normal. Enlarged uterus. Previous cholecystectomy. No biliary duct dilatation.
== END 2018-11-19 21:33 | disposition home or self-care (01) ==
LOC: ED 18:55
DX: Q61.3 Polycystic kidney, unspecified (principal); Z87.442 Personal history of urinary calculi; Z87.440 Personal history of urinary (tract) infections; F17.210 Nicotine dependence, cigarettes, uncomplicated
CPT/HCPCS: 36415; 81001; 85025; 96361; 96374; 96375; 99283

== ENCOUNTER 2018-11-21 09:24 | Emergency (ER) ==
[2018-11-21 09:24] VITALS: BMI 27.4
[2018-11-21 09:28] VITALS: BP 156/93; TEMP 97.8
--- NOTE | 2018-11-21 11:44 | US ---
EXAM: OB ultrasound HISTORY: Positive test, vaginal bleeding. FINDINGS: OB ultrasound transvaginal. Transvaginal approach imaging was performed for improved reso lution and anatomic definition. Within thickened endometrium, there is a oval shaped fluid collection with no pole or yolk sac identified. Conceivably this could represent an empty gestational sac. If this represents a gestati onal sac, its measurement would indicate about 12 weeks, 4 days. The myometrium is heterogeneous. O varies were heterogeneous. Ovaries appeared to have adequate blood flow. The ovaries appeared to mcguire ve at least one involuting cyst. Small amount of simple pelvic ascites. IMPRESSION: 1. Possible intrauterine gestational sac although no evidence of pole or yolk sac. This may r epresent an empty gestational sac although correlation with serial beta HCG measurements is recommend ed and if indicated, follow ultrasound can be obtained. 2. Heterogeneous appearance of the uterus and ovaries. Each ovary appeared have an involuting cyst or dominant follicle. 3. Trace simple pelvic ascites. 4. Once determination of absence of is made, consider follow-up pelvic MRI for better eval uation of the pelvic organs.
--- NOTE | 2018-11-21 12:55 | ED.PDOC ---
General ED Provider: Dr. KASIE FERREIRA Chief Complaint: Vaginal Bleeding Stated Complaint: vaginal bleeding Time Seen by Physician: 09:30 (seen with keyon) Mode of Arrival: Walk-In Information Source: Patient Exam Limitations: No limitations (pt's LMP WAS IN ON OCTOBER 04 HCG LEVEL WAS 1286.00) Referred to ED by: Other (HER RH TYPE AT THAT TIME WAS RH POSTIVE REPORT ATTACHED TO CHART) Nursing and Triage Documentation Reviewed and Agree: Yes (PT WAS [facility] 11/12/[facility]) Does patient meet sepsis criteria?: No (REPORTED OF A SUDDEN ONSET VAGINAL BLEED P.T.A ) System Inflammatory Response Syndrome: Not Applicable Sepsis Protocol: For patient's 13 years and over: Temp is 96.8 and below OR 101 and greater Pulse >90 BPM Resp >20/minute Acutely Altered Mental Status Are patient's symptoms suggestive of a new infection, such as: -Pneumonia -Skin, Soft Tissue -Endocarditis -UTI -Bone, Joint Infection -Implantable Device -Acute Abdominal Infection -Wound Infection -Meningitis -Blood Stream Catheter Infection -Unknown Complaint Exam - UTI Female Complaint/Exam : 5 Para: 3 Hx Total # of Abortions (Spontaneous & Elective): 2 - Complaint/Exam Onset/Duration: THIS MORNING Symptoms Are: Resolved Initial Severity: Mild Current Severity: None Location of Pain: Reports: None (NO PAIN ) Associated Signs and Symptoms: Reports: Vaginal bleeding. Denies: Diaphoresis, Back pain, Fever, Hematuria, Dysuria, Constipation, Blood in stool, Rectal pain , Appetite change, Nausea, Vomiting, Decreased urine output, Increased urine frequency, Increased thirst, Decreased activity, Lethargy, Abdominal Pain, Bubble bath use, Vaginal discharge, Genital swelling, Genital blisters, Retained foreign body : 5 Para: 3 Hx Total # of Abortions (Spontaneous & Elective): 2 Last Voided: THIS MORNING Ectopic Risk Factors: Reports: Maternal age >30 Ovarian Torsion Risk Factors: Reports: Reproductive age Surgical Obstruction Risk Factors: Reports: None RH Status: Positive Related Surgical History: Reports: None Abdominal Findings: Present: None Vaginal Exam: Present: Blood (CHIP PRESENT AT ALL TIMES ) Differential Diagnoses: Other (MISCARRAIGE ) Review of Systems - Review Of Systems Constitutional: Reports: No symptoms Eyes: Reports: No symptoms Ears, Nose, Mouth, Throat: Reports: No symptoms Respiratory: Reports: No symptoms Cardiac: Reports: No symptoms GI: Reports: No symptoms : Reports: Other (VAGINAL BLEEDING) Musculoskeletal: Reports: No symptoms Skin: Reports: No symptoms Neurological: Reports: No symptoms Endocrine: Reports: No symptoms Hematologic/Lymphatic: Reports: No symptoms All Other Systems: Reviewed and Negative Past Medical History - Past Medical History Previously Healthy: Yes Endocrine: Reports: None Cardiovascular: Reports: None Respiratory: Reports: None Hematological: Reports: None Gastrointestinal: Reports: None Genitourinary: Reports: UTI, Kidney stones, Urosepsis, Other (polycystic ovarian disease) Neuro/Psych: Reports: None Musculoskeletal: Reports: None Cancer: Reports: None Last Menstrual Period: 08/25/18 Other Pertinent Past Medical History: Drug abuse- Methamphetamind, marijuana - Surgical History General Surgical History: Reports: Cholecystectomy - Family History Family History: Reports: Unknown - Social History Smoking Status: Current every day smoker, Heavy tobacco smoker Hx Substance Use: No Alcohol Screening: None - Immunizations Tetanus Shot up to Date: No Physical Exam - Physical Exam Appearance: Well-appearing, No pain distress, Well-nourished Eyes: GEOVANI, EOMI, Conjunctiva clear ENT: Ears normal, Nose normal, Oropharynx normal Respiratory: Airway patent, Breath sounds clear, Breath sounds equal, Respirations nonlabored Cardiovascular: RRR, Pulses normal, No rub, No murmur GI/: Nontender (VAGINAL BLEED ) Musculoskeletal: Normal strength, ROM intact, No edema, No calf tenderness Skin: Warm, Dry, Normal color Neurological: Sensation intact, Motor intact, Reflexes intact, Cranial nerves intact, Alert, Oriented Psychiatric: Affect appropriate, Mood appropriate Physician Notification - Case Discussed Physician Notified: MARIYA AYALA Time of Notification: 12:58 (CHECK RH STATUS IF BLLED CONTINUS MUST GO TO [facility] ) Critical Care Note - Critical Care Note Total Time (mins): 0 Course - Course Hematology/Chemistry: 11/21/18 09:49 11/21/18 09:49 Orders, Labs, Meds: Lab Review 11/21/18 11/21/18 11/21/18 09:49 09:49 09:49 WBC 10.75 H RBC 4.32 Hgb 13.0 Hct 38.1 MCV 88.2 MCH 30.1 MCHC 34.1 RDW Coeff of April 12.5 Plt Count 289 Immature Gran % (Auto) 0.5 Neut % (Auto) 59.0 Lymph % (Auto) 32.4 [place] % (Auto) 6.4 Eos % (Auto) 1.3 Baso % (Auto) 0.4 Immature Gran # (Auto) 0.1 Neut # (Auto) 6.4 Lymph # (Auto) 3.5 H [place] # (Auto) 0.7 Eos # (Auto) 0.1 Baso # (Auto) 0.0 PT 9.2 L INR 0.92 APTT 23.5 L Sodium 137.0 Potassium 3.19 L Chloride 105.3 Carbon Dioxide 23.8 Anion Gap 11.09 BUN 16.8 Creatinine 0.63 Estimated GFR (MDRD) 106.00 BUN/Creatinine Ratio 26.66 Glucose 95.1 Calcium 8.10 L Total Bilirubin 0.19 L AST 23.7 ALT 14.4 Alkaline Phosphatase 42.9 Total Protein 6.32 Albumin 3.96 Globulin 2.36 Albumin/Globulin Ratio 1.67 HCG, Quant Serum , Qual 11/21/18 11/21/18 09:49 09:49 WBC RBC Hgb Hct MCV MCH MCHC RDW Coeff of April Plt Count Immature Gran % (Auto) Neut % (Auto) Lymph % (Auto) [place] % (Auto) Eos % (Auto) Baso % (Auto) Immature Gran # (Auto) Neut # (Auto) Lymph # (Auto) [place] # (Auto) Eos # (Auto) Baso # (Auto) PT INR APTT Sodium Potassium Chloride Carbon Dioxide Anion Gap BUN Creatinine Estimated GFR (MDRD) BUN/Creatinine Ratio Glucose Calcium Total Bilirubin AST ALT Alkaline Phosphatase Total Protein Albumin Globulin Albumin/Globulin Ratio HCG, Quant 335.190 Serum , Qual Positive Orders Category Date Time Status CBC W/ AUTO DIFF Stat LAB 11/21/18 09:49 Completed COMPREHENSIVE METABOLIC PANEL Stat LAB 11/21/18 09:49 Completed HCG,QUANTITATIVE Stat LAB 11/21/18 09:49 Completed PARTIAL THROMBOPLASTIN TIME Stat LAB 11/21/18 09:49 Completed PT WITH INR Stat LAB 11/21/18 09:49 Completed SERUM Stat LAB 11/21/18 09:49 Completed ULTRASOUND OB/TV [U/S OB/TV] Stat RADS 11/21/18 10:48 Completed Vital Signs: Temp Pulse Resp BP Pulse Ox 11/21/18 09:24 97.8 F 112 H 22 156/93 H 98 Departure - Departure Time of Disposition: 12:58 (chip present during all my interactions with the pt. pt had no furhter bleeding in the ED . mariya AYALA would like the pt to callmake appointment) Disposition: HOME SELF-CARE Discharge Problem: Bleeding from vagina, Miscarriage Instructions: Miscarriage (ED), Threatened Miscarriage (ED) Condition: Good Pt referred to PMD for follow-up: Yes IPMP verified?: No Additional Instructions: Please call your Family Physician as soon as possible to schedule a follow-up appointment.call doctor mariya office and make appointment they are aware of you return as needed Allergies/Adverse Reactions: Allergies No Known Allergies Allergy (Verified 11/21/18 09:28) Home Medications: Ambulatory Orders 1 [No Reported Medications] 10/04/18
== END 2018-11-21 13:15 | disposition home or self-care (01) ==
LOC: ED 09:24
DX: O03.9 Complete or unspecified spontaneous abortion without complication (principal); F17.210 Nicotine dependence, cigarettes, uncomplicated
CPT/HCPCS: 36415; 80053; 84702; 84703; 85025; 85610; 85730; 99284

== ENCOUNTER 2018-12-30 18:31 | Emergency (ER) ==
[2018-12-30 18:38] VITALS: BP 162/99; TEMP 97.4; BMI 27.6
--- NOTE | 2018-12-30 18:39 | ED.PDOC ---
General ED Provider: Dr. KASIE FERREIRA Stated Complaint: my eyes are red and draining Time Seen by Physician: 18:37 Mode of Arrival: Walk-In Information Source: Patient Exam Limitations: No limitations Nursing and Triage Documentation Reviewed and Agree: Yes Does patient meet sepsis criteria?: No System Inflammatory Response Syndrome: Not Applicable Sepsis Protocol: For patient's 13 years and over: Temp is 96.8 and below OR 101 and greater Pulse >90 BPM Resp >20/minute Acutely Altered Mental Status Are patient's symptoms suggestive of a new infection, such as: -Pneumonia -Skin, Soft Tissue -Endocarditis -UTI -Bone, Joint Infection -Implantable Device -Acute Abdominal Infection -Wound Infection -Meningitis -Blood Stream Catheter Infection -Unknown <KASIE FERREIRA - Last Filed: 12/30/18 18:37> ED Provider: Dr. ADALGISA HALLMAN- Sepsis Protocol: For patient's 13 years and over: Temp is 96.8 and below OR 101 and greater Pulse >90 BPM Resp >20/minute Acutely Altered Mental Status Are patient's symptoms suggestive of a new infection, such as: -Pneumonia -Skin, Soft Tissue -Endocarditis -UTI -Bone, Joint Infection -Implantable Device -Acute Abdominal Infection -Wound Infection -Meningitis -Blood Stream Catheter Infection -Unknown <ADALGISA GROVER - Last Filed: 12/30/18 18:42> Chief Complaint: Eye Problem EENT Complaint Exam - Eye Complaint/Exam Onset/Duration: 24 hrs Symptoms Are: Still present Timing: Constant Initial Severity: Mild Current Severity: Mild Location: Bilateral Alleviating: Reports: None Associated Signs and Symptoms: Reports: Photophobia, Purulent drainage Eye Surgical History: Reports: None Penetrating Injury Risk Factors: None Globe Rupture Risk Factors: None Acute Glaucoma Risk Factors: None Optic Artery Occlusion Risk Factors: None Visual Field: Normal Extraocular Movement: Normal Orbit Findings: Normal Globe Findings: Intact Lid Findings: Erythema Conjunctival Findings: Red, Exudate Corneal Findings: Clear Differential Diagnoses: Conjunctivitis <KASIE FERREIRA - Last Filed: 12/30/18 18:37> Review of Systems - Review Of Systems Constitutional: Reports: No symptoms Eyes: Reports: Drainage, Inflammation Ears, Nose, Mouth, Throat: Reports: No symptoms Respiratory: Reports: No symptoms Cardiac: Reports: No symptoms GI: Reports: No symptoms : Reports: No symptoms Musculoskeletal: Reports: No symptoms Skin: Reports: No symptoms Neurological: Reports: No symptoms Endocrine: Reports: No symptoms Hematologic/Lymphatic: Reports: No symptoms All Other Systems: Reviewed and Negative <HANNAKASIE Last Filed: 12/30/18 18:37> Past Medical History - Past Medical History Previously Healthy: Yes Endocrine: Reports: None Cardiovascular: Reports: None Respiratory: Reports: None Hematological: Reports: None Gastrointestinal: Reports: None Genitourinary: Reports: UTI, Kidney stones, Urosepsis, Other (polycystic ovarian disease) Neuro/Psych: Reports: None Musculoskeletal: Reports: None Cancer: Reports: None Last Menstrual Period: 08/25/2018 Other Pertinent Past Medical History: Drug abuse- Methamphetamind, marijuana - Surgical History General Surgical History: Reports: Cholecystectomy - Family History Family History: Reports: Unknown - Social History Smoking Status: Current every day smoker, Heavy tobacco smoker Hx Substance Use: No Alcohol Screening: None - Immunizations Tetanus Shot up to Date: Yes <HANNAKASIE Last Filed: 12/30/18 18:37> Physical Exam - Physical Exam Appearance: Well-appearing, No pain distress, Well-nourished Eyes: Conjunctiva inflammed ENT: Ears normal, Nose normal, Oropharynx normal Neck: Supple Respiratory: Airway patent, Breath sounds clear, Breath sounds equal, Respirations nonlabored Cardiovascular: RRR, Pulses normal, No rub, No murmur GI/: Soft, Nontender, No masses, Bowel sounds normal, No Organomegaly Musculoskeletal: Normal strength, ROM intact, No edema, No calf tenderness Skin: Warm, Dry, Normal color Neurological: Sensation intact, Motor intact, Reflexes intact, Cranial nerves intact, Alert, Oriented Psychiatric: Affect appropriate, Mood appropriate <KASIE FERREIRA - Last Filed: 12/30/18 18:37> Critical Care Note - Critical Care Note Total Time (mins): 0 <HANNAKASIE Last Filed: 12/30/18 18:37> Course - Course Vital Signs: Temp Pulse Resp BP Pulse Ox 12/30/18 18:32 97.4 F L 94 H 18 162/99 H 96 <KASIE FERREIRA - Last Filed: 12/30/18 18:37> - Course Vital Signs: Temp Pulse Resp BP Pulse Ox 12/30/18 18:32 97.4 F L 94 H 18 162/99 H 96 <ADALGISA GROVER - Last Filed: 12/30/18 18:42> Departure - Departure Time of Disposition: 18:38 Pt referred to PMD for follow-up: Yes IPMP verified?: No Disposition Discussed With: Patient <HANNAKASIE - Last Filed: 12/30/18 18:37> <ADALGISA GROVER - Last Filed: 12/30/18 18:42> - Departure Disposition: HOME SELF-CARE Discharge Problem: Conjunctivitis Qualifiers: Conjunctivitis type: blepharoconjunctivitis Blepharoconjunctivitis type: unspecified Laterality: bilateral Qualified Code(s): H10.503 - Unspecified blepharoconjunctivitis, bilateral Instructions: Conjunctivitis (ED) Condition: Good Allergies/Adverse Reactions: Allergies No Known Allergies Allergy (Verified 11/21/18 09:28) Home Medications: Ambulatory Orders 1 [No Reported Medications] 10/04/18
== END 2018-12-30 18:53 | disposition home or self-care (01) ==
LOC: ED 18:31
DX: H10.503 Unspecified blepharoconjunctivitis, bilateral (principal); F17.210 Nicotine dependence, cigarettes, uncomplicated
CPT/HCPCS: 99282

== ENCOUNTER 2019-03-04 05:28 | Observation (INO) ==
[2019-03-04 05:54] VITALS: BMI 28.0
[2019-03-04] MEDS ORDERED: ZOFRAN 4 MG/2 ML IVP STA (06:17)
[2019-03-04] MEDS ORDERED: MORPHINE 4 MG/ML VIAL IVP STA (06:17)
[2019-03-04] MEDS ORDERED: LEVAQUIN 500 MG in PREMIX 100 ML D5W 1 BAG IV STA (06:17)
[2019-03-04] MEDS ORDERED: LACTATED RINGERS 1,000 ML IV STA (06:19)
--- NOTE | 2019-03-04 06:22 | ED.PDOC ---
General <ADALGISA KYLE - Last Filed: 03/04/19 08:07> Stated Complaint: Patient is a 38 year old female who comes to the ER with fever and flank pain x 4 days. States that the pain is aching rates it at 8/10 on the left flank area. Took Ibuprfen prior to arrival. Has had frequent UTI and has been hospitalized for the same. Time Seen by Physician: 06:15 Mode of Arrival: Walk-In Information Source: Patient Nursing and Triage Documentation Reviewed and Agree: Yes Does patient meet sepsis criteria?: Yes If yes, has appropriate treatment been initiated?: Yes (LR) System Inflammatory Response Syndrome: Temp 101F or Greater, Pulse >90 BPM <JAG HOLLAND - Last Filed: 03/05/19 06:58> ED Provider: Dr. JAG HOLLAND Chief Complaint: Urinary Problem Sepsis Protocol: For patient's 13 years and over: Temp is 96.8 and below OR 101 and greater Pulse >90 BPM Resp >20/minute Acutely Altered Mental Status Are patient's symptoms suggestive of a new infection, such as: -Pneumonia -Skin, Soft Tissue -Endocarditis -UTI -Bone, Joint Infection -Implantable Device -Acute Abdominal Infection -Wound Infection -Meningitis -Blood Stream Catheter Infection -Unknown Complaint Exam - UTI Female Complaint/Exam Patient Complains of: Denies: Painful urination (Flank pain ), Blood in urine Onset/Duration: 4 days Symptoms Are: Still present Timing: Constant Initial Severity: Moderate Current Severity: Severe Location of Pain: Reports: Left Associated Signs and Symptoms: Reports: Fever, Chills, Flank pain. Denies: Dyspareunia, Vaginal discharge Patient Rh Status: Unknown Related History: Reports: Similar episode Related Surgical History: Reports: None CVA Tenderness: Yes Suprapubic Tenderness: No Differential Diagnoses: Pyelonephritis, Ureteral Calculus <JAG HOLLAND - Last Filed: 03/05/19 06:58> Review of Systems - Review Of Systems Constitutional: Reports: Chills, Fever Eyes: Reports: No symptoms Ears, Nose, Mouth, Throat: Reports: No symptoms Respiratory: Reports: No symptoms Cardiac: Reports: No symptoms GI: Reports: No symptoms : Reports: Flank pain Musculoskeletal: Reports: Back pain Skin: Reports: No symptoms Neurological: Reports: No symptoms Endocrine: Reports: No symptoms Hematologic/Lymphatic: Reports: No symptoms All Other Systems: Reviewed and Negative <VALENTINAMELANIEJAG - Last Filed: 03/05/19 06:58> Past Medical History - Past Medical History Musculoskeletal: Reports: Arthritis, Back Pain, Joint Pain <ADALGISA KYLE - Last Filed: 03/04/19 08:07> - Past Medical History Previously Healthy: Yes Endocrine: Reports: None Cardiovascular: Reports: None Respiratory: Reports: None Hematological: Reports: None Gastrointestinal: Reports: None Genitourinary: Reports: UTI, Kidney stones, Urosepsis, Other (polycystic ovarian disease) Neuro/Psych: Reports: None Musculoskeletal: Reports: None Cancer: Reports: None Last Menstrual Period: ENDED 1 WEEK AGO, HAD MISCARRIAGE IN NOVEMBER AND HAS BEEN BLEEDING SINCE Other Pertinent Past Medical History: Drug abuse- Methamphetamind, marijuana - Surgical History General Surgical History: Reports: Cholecystectomy - Family History Family History: Reports: Unknown - Social History Smoking Status: Current every day smoker, Heavy tobacco smoker Hx Substance Use: No Alcohol Screening: None - Immunizations Tetanus Shot up to Date: (UNKNOWN) <VALENTINAMELANIEJAG - Last Filed: 03/05/19 06:58> Physical Exam - Physical Exam Appearance: Ill-appearing Ill-appearing: Moderate Pain Distress: Severe Neck: Supple Respiratory: Airway patent, Breath sounds clear, Breath sounds equal, Respirations nonlabored Cardiovascular: RRR, Pulses normal, No rub, No murmur GI/: Soft, Nontender, No masses, Bowel sounds normal, No Organomegaly Musculoskeletal: Normal strength, ROM intact, No edema, No calf tenderness Skin: Warm Neurological: Alert, Oriented Psychiatric: Anxious <VALENTINAMELANIEJAG - Last Filed: 03/05/19 06:58> Interpretation - Radiology Interpretation Radiology Interpretation By: Radiologist Radiology Results: Positive (perinephric stranding consistent with Pyelonphritis ) Exam Interpreted: CT Scan <VALENTINAMELANIEJAG - Last Filed: 03/05/19 06:58> Physician Notification - Case Discussed Endorsed To/Discussed With: Dr Dewey Time of Discussion: 07:00 (Urosepsis. Awaiting CT scan finding and getting antibiotics. ) <JAG HOLLAND Last Filed: 03/05/19 06:58> Critical Care Note - Critical Care Note Total Time (mins): 60 <ADALGISA KYLE - Last Filed: 03/04/19 08:07> - Critical Care Note Total Time (mins): 35 <VALENTINAMELANIEJAG - Last Filed: 03/05/19 06:58> Course - Course Hematology/Chemistry: 03/04/19 06:30 03/04/19 06:30 <ADALGISA KYLE - Last Filed: 03/04/19 08:07> - Course Hematology/Chemistry: 03/05/19 04:55 03/05/19 04:55 <JAG HOLLAND - Last Filed: 03/05/19 06:58> - Course Orders, Labs, Meds: Lab Review 03/04/19 03/04/19 03/04/19 05:50 05:50 06:30 WBC 15.99 H RBC 4.26 Hgb 12.5 Hct 37.4 MCV 87.8 MCH 29.3 MCHC 33.4 RDW Coeff of April 12.4 Plt Count 224 Immature Gran % (Auto) 0.4 Neut % (Auto) 85.8 Lymph % (Auto) 4.8 L [place] % (Auto) 8.6 Eos % (Auto) 0.1 Baso % (Auto) 0.3 Immature Gran # (Auto) 0.1 Neut # (Auto) 13.7 H Lymph # (Auto) 0.8 [place] # (Auto) 1.4 Eos # (Auto) 0.0 Baso # (Auto) 0.0 Sodium Potassium Chloride Carbon Dioxide Anion Gap BUN Creatinine Estimated GFR (MDRD) BUN/Creatinine Ratio Glucose Lactic Acid Calcium Total Bilirubin AST ALT Alkaline Phosphatase Total Protein Albumin Globulin Albumin/Globulin Ratio Procalcitonin Urine Color Yellow Urine Clarity Slightly Urine pH 7.5 Ur Specific [employer] Mdl 1.025 Urine Protein 2+ Urine Glucose (UA) Negative Urine Ketones Negative Urine Blood 2+ Urine Nitrite Negative Urine Bilirubin Negative Urine Urobilinogen 0.2 Ur Leukocyte Esterase 1+ Urine Microscopic RBC 30-50 Urine Microscopic WBC 2-5 Ur Squamous Epith Cells 2-5 Urine Test Negative 03/04/19 03/04/19 03/04/19 06:30 06:30 06:30 WBC RBC Hgb Hct MCV MCH MCHC RDW Coeff of April Plt Count Immature Gran % (Auto) Neut % (Auto) Lymph % (Auto) [place] % (Auto) Eos % (Auto) Baso % (Auto) Immature Gran # (Auto) Neut # (Auto) Lymph # (Auto) [place] # (Auto) Eos # (Auto) Baso # (Auto) Sodium 135.1 Potassium 3.52 Chloride 102.0 Carbon Dioxide 27.2 Anion Gap 9.42 BUN 13.6 Creatinine 0.61 Estimated GFR (MDRD) 110.00 BUN/Creatinine Ratio 22.29 Glucose 124.1 H Lactic Acid 1.29 Calcium 8.98 Total Bilirubin 0.40 AST 73.6 H ALT 45.3 H Alkaline Phosphatase 126.6 H Total Protein 7.18 Albumin 3.84 Globulin 3.34 Albumin/Globulin Ratio 1.14 Procalcitonin 0.27 Urine Color Urine Clarity Urine pH Ur Specific [employer] Mdl Urine Protein Urine Glucose (UA) Urine Ketones Urine Blood Urine Nitrite Urine Bilirubin Urine Urobilinogen Ur Leukocyte Esterase Urine Microscopic RBC Urine Microscopic WBC Ur Squamous Epith Cells Urine Test Orders Category Date Time Status ADMIT PATIENT INPATIENT .TO [facility] (NON-MONITORED ADMISSION 03/04/19 08: 29 Active BED) REGULAR DIET DIETARY 03/04/19 Breakfast Ordered ED APPLY O2 .ONCE EMERGENCY 03/04/19 06:17 Active ED WAFER SUBSTRATE TESTER APPLIED .ONCE EMERGENCY 03/04/19 06:17 Active ED IV/MEDIPORT/POWERPORT .ONCE EMERGENCY 03/04/19 06:18 Active ROBYN W/REFLEX Stat LAB 03/04/19 06:30 Received BLOOD CULTURE (ED ONLY) Stat LAB 03/04/19 06:30 Received CBC W/ AUTO DIFF DAILY@0600 LAB 03/05/19 04:55 Completed CBC W/ AUTO DIFF DAILY@0600 LAB 03/06/19 06:00 Ordered CBC W/ AUTO DIFF Stat LAB 03/04/19 06:30 Completed COMPREHENSIVE METABOLIC PANEL DAILY@0600 LAB 03/05/19 04:55 Completed COMPREHENSIVE METABOLIC PANEL DAILY@0600 LAB 03/06/19 06:00 Ordered COMPREHENSIVE METABOLIC PANEL Stat LAB 03/04/19 06:30 Completed CRP [C-REACTIVE PROTEIN] Stat LAB 03/04/19 06:30 Received LACTIC ACID Stat LAB 03/04/19 06:30 Completed PROCALCITONIN Stat LAB 03/04/19 06:30 Completed URINALYSIS C & S IF INDICATED Stat LAB 03/04/19 05:50 Completed URINE Stat LAB 03/04/19 05:50 Completed 0.9 % Sodium Chloride [Saline Flush] MEDS 03/04/19 06:17 Active 1 syr IVF PRN PRN Acetaminophen [Tylenol] MEDS 03/04/19 08:30 Active 650 mg PO Q4H PRN Enalaprilat Dihydrate [Vasotec IV] MEDS 03/04/19 08:06 Discontinued 1.25 mg IVP ONCE STA Enoxaparin Sodium [Lovenox] MEDS 03/04/19 09:00 Active 40 mg SUBCUT DAILY Levofloxacin/D5w [Levaquin] 100 ml MEDS 03/04/19 06:26 Discontinued IV .STK-MED Levofloxacin/D5w [Levaquin] 500 mg MEDS 03/04/19 06:17 Discontinued Premix 100 ml D5w 1 bag IV ONCE Morphine Sulfate [Morphine 4 mg/ml Vial] MEDS 03/04/19 06:17 Discontinued 4 mg IVP ONCE STA Ondansetron HCl/Pf [Zofran 4 mg/2 ml] MEDS 03/04/19 06:17 Discontinued 4 mg IVP ONCE STA Ondansetron HCl/Pf [Zofran 4 mg/2 ml] MEDS 03/04/19 08:30 Active 4 mg IVP Q6H PRN Ringers Lactated Solution [Lactated Ringers] 1,000 ml MEDS 03/04/19 06:19 Discontinued IV BOLUS Sodium Chloride 0.9% [Sodium Chloride] 1,000 ml MEDS 03/04/19 08:30 Active IV 75 mls/hr RESUSCITATION STATUS Routine OTHERS 03/04/19 08:[address] ABD/PEL WO RENAL STONE PROT Stat RADS 03/04/19 06:27 Completed Medications Generic Name Dose Route Start Last Admin Trade Name Freq PRN Reason Stop Dose Admin Acetaminophen 650 mg 03/04/19 08:30 03/04/19 15:33 Tylenol PO 650 mg Q4H PRN Administration Temperature elevation/pain Enoxaparin Sodium 40 mg 03/04/19 09:00 03/04/19 10:10 Lovenox SUBCUT 40 mg DAILY LISSETT Administration Sodium Chloride 1,000 mls @ 75 mls/hr 03/04/19 08:30 03/04/19 12:51 Sodium Chloride IV 75 mls/hr .[id number] LISSETT Administration Levofloxacin/Dextrose 750 mg/ 150 mls @ 100 mls/hr 03/05/19 09:00 Dextrose IV 03/12/19 08:59 DAILY LISSETT Levofloxacin/Dextrose 250 mg/ 50 mls @ 75 mls/hr 03/04/19 14:00 03/04/19 15: 34 Dextrose IV 03/05/19 06:59 75 mls/hr DAILY LISSETT Administration Lisinopril 10 mg 03/04/19 18:00 03/04/19 18:29 Zestril PO Not Given DAILY LISSETT Morphine Sulfate 4 mg 03/04/19 18:00 03/05/19 05:20 Morphine 4 Mg/Ml Vial IVP 4 mg Q6HR LISSETT Administration Ondansetron HCl 4 mg 03/04/19 08:30 Zofran 4 Mg/2 Ml IVP Q6H PRN Nausea / Vomiting Sodium Chloride 1 syr 03/04/19 06:17 Saline Flush IVF PRN PRN To flush IV Sodium Chloride 1 syr 03/04/19 13:00 03/05/19 05:30 Saline Flush IVF 1 syr Q8HR LISSETT Administration Discontinued Medications Generic Name Dose Route Start Last Admin Trade Name Freq PRN Reason Stop Dose Admin Enalaprilat 1.25 mg 03/04/19 08:06 03/04/19 08:14 Vasotec Iv IVP 03/04/19 08:07 1.25 mg ONCE STA Administration Levofloxacin/Dextrose 500 mg/ 100 mls @ 100 mls/hr 03/04/19 06:17 03/04/19 06 :34 Dextrose IV 03/04/19 07:16 100 mls/hr ONCE STA Administration Lactated Ringer's 1,000 mls @ 1,000 mls/hr 03/04/19 06:19 03/04/19 06:34 Lactated Ringers IV 03/04/19 07:18 1,000 mls/hr BOLUS STA Administration Levofloxacin/Dextrose 500 mg/ 100 mls @ 100 mls/hr 03/05/19 09:00 Dextrose IV 03/08/19 08:59 DAILY LISSETT Morphine Sulfate 4 mg 03/04/19 06:17 03/04/19 06:33 Morphine 4 Mg/Ml Vial IVP 03/04/19 06:18 4 mg ONCE STA Administration Morphine Sulfate 4 mg 03/04/19 13:17 03/04/19 13:26 Morphine 4 Mg/Ml Vial IVP 03/04/19 13:18 4 mg ONCE ONE Administration Ondansetron HCl 4 mg 03/04/19 06:17 03/04/19 06:33 Zofran 4 Mg/2 Ml IVP 03/04/19 06:18 4 mg ONCE STA Administration Vital Signs: Temp Pulse Resp BP Pulse Ox 03/04/19 05:45 101.2 F H 135 H 20 167/108 H 97 Departure - Departure Time of Disposition: 08:45 <ADALGISA KYLE - Last Filed: 03/04/19 08:07> - Departure Pt referred to PMD for follow-up: No IPMP verified?: No (admitted) <JAG HOLLAND - Last Filed: 03/05/19 06:58> - Departure Disposition: ADMITTED INPATIENT Discharge Problem: Acute pyelonephritis Condition: Fair Allergies/Adverse Reactions: Allergies No Known Allergies Allergy (Uncoded 03/04/19 05:53) Home Medications: Ambulatory Orders 1 [No Reported Medications] 10/04/18 <ADALGISA KYLE - Last Filed: 03/04/19 08:07> <JAG HOLLAND - Last Filed: 03/05/19 06:58> Additional Information: Assumed care of patient from Dr Holland. Dx Pyelonephritis Urosepsis Hx SLE Polycystic Kidney disease Hx recent spontaneous Discussed with Dr Holland. Patient has received IV fluids and currently Levaquin infusing. Having fever, chills and lt flank pain. History Lupus but no recent work up or treatment. Current BP 137/112 No reported Meds. States BP has been elevated previously but has not been prescribed treatment Recommend initiating tx for elevated BP and hospitalization Will discuss with hospitalist. (ADALGISA KYLE)
[2019-03-04] MEDS ORDERED: LEVAQUIN 100 ML IV ONE (06:26)
[2019-03-04 06:27] LABS: URINE PREGNANCY TEST NEGATIVE (NEGATIVE)
--- NOTE | 2019-03-04 07:35 | CT ---
EXAM: CT abdomen pelvis without contrast HISTORY: Left flank pain, history renal cyst/mass COMPARISON: 11/19/2018 TECHNIQUE: CT abdomen pelvis performed without intravenous contrast. Coronal and sagittal reformatt ed images obtained. FINDINGS: Mild right basilar atelectasis. No free air. No acute abnormalities of the bones. Chron ic sclerosis right iliac bone near the sacroiliac joint. Heart normal in size. Evaluation organ par enchyma limited without contrast. Small stable hypodensities in the liver, most likely cysts. The p atient status post cholecystectomy. Pancreas unremarkable. Spleen unremarkable. Adrenals unremarka ble. Aorta normal in caliber. Mild atherosclerosis. Uterus unremarkable. The bladder unremarkable . No lymphadenopathy or ascites. Stomach unremarkable. No dilated loops small bowel. Appendix xiomara ears normal. Mild fecal retention in the colon. Renal parenchyma is replaced by innumerable large a nd small renal cysts, some of which may be complex. Small right renal calculi and possibly a small l eft renal calculi versus hyperdensity related to cysts. No hydronephrosis. Mild left perinephric st randing. No calculi visualized in normal course of the ureters. Bladder unremarkable. IMPRESSION: Nonspecific left perinephric stranding. Finding is nonspecific and clinical correlation is recommended for any evidence of pyelonephritis. This is incompletely evaluated without contrast . Additionally, there are findings of polycystic kidney disease with innumerable large and small kana al cysts replacing the renal parenchyma, some of which may be complex. Right and possibly left nephr olithiasis. No hydronephrosis.
[2019-03-04] MEDS ORDERED: VASOTEC IV IVP STA (08:06)
[2019-03-04] MEDS ORDERED: ZOFRAN 4 MG/2 ML IVP PRN (08:30)
[2019-03-04] MEDS ORDERED: TYLENOL PO PRN (08:30)
--- NOTE | 2019-03-04 08:34 | PCM ---
- Chief Complaint Chief Complaint: Flank Pain, Dysuria, Pyelonephritis, SIRS with Sepsis - History of Present Illness History of Present Illness: 38 yo WF presetned to ED this am at 06:15 with fever/flank pain x 4 days. Pain relayed as 8 on a 1-10 scale within the left flank area. She has history of frequent UTI and has been hospitalized several times for this problem. The patient took an ibuprofen prior to arrival per ER documentation. She walked into the ED this am and met with Dr. Lozano. Vitals were 101.2, pulse 135, RR 20 and BP noted elevated at 167/108 with pulse ox of 97% on RA. SIRS criteria were met, with her symptoms it was suspected that she had SEPSIS. She denied paniful urination but noted flank pain, blood in the urine over the last 4 days w/ sx still present at time of ER evaluation. Severe pain 8/10, fever, chills, flank pain, dysuria, hematuria, frequency, hesitancy. DDx in the ER considered Pyelonephritis vs nephrolithiasis. ROS reviewed from DR. Lozano, chills/fever, back pain, flank pain, urological symptoms without GI symptoms. Hx of several UTI, nephrolithiasis, urosepsis, hx of PCOS. LMP 1 week ago, Miscarriage 2018, atypical bleeding since that point. History of meth/THC use. Historical cholecystectomy. Heavy tobacco user. Dr. Melendez took signout of the patient at [address] scan results were penging. IV levaquin was started per sepsis protocol and labs were collected. Labs showed CBC with 15.99 WBC, Hgb 12.5, hct 37.4, plt 224. Differential reviewed and predominant neutrophilia with lymphocytopenia. Urine test negative. Urine showed 2+ protein, 1.025 SG, 2+ blood, 1+ LE, 30-50 rbc, 2-5 WBC, Squam 2-5. CMP with sodium 135.1 , K+ 3.52, gap 9.42, cr 0.61, GFR 110, glucose borderline at 124.1 (will add a1c ), Lactic acid 1.29, Calcium 8.98 and ast elevated 73.6, alt 45.3 and procalc 0.27. Blood cultures collected, ROBYN collected as she had history of lupus as well. CRP ordered and pending. She was given IVP vasotec once for BP elevation, started on 500mg levaquin and given morphine 4mg IVP once. She had a 1000ml bolus of LR and then started on NS. I was contacted at 8:24 am and approved the admission. Not on any meds at home. Dr. Melendez and I had a discussion 1: 1 and patient was admitted to room 120-1. CT report obtained, mild right basilar atelectasis, no free air. Non specific left perinephric stranding. Nonspecific findings correlate with s/sx of pyelonephritis. Incomplete eval w/ o contrast. Findings of Polycystic kidney disease, innumerable large and small renal cysts replacing the renal parencyhma some complex. Right and left nephrolithiasis without hydronephrosis. Reviewed chart and she has had several ER evaluations. It appears last admit to [facility] was 11/29/[address] Garnett. She will be admitted to the hospital with SIRS/Sepsis with suspected urological cause. Patient seen around 12 pm today. She noted fever today around 4 am. No other sick contacts, no recent travel. Last UTI 11/29/17. Sexually active. HCG level is now at 0 1.5 weeks ago, 3 months of bleeding. Was following [facility] Dr. Canela in [place]. Last visit with them 3 weeks ago. She notes 1.5 weeks ago bleeding has stopped. Patient smokes 3/4 to 1ppd x 19 years. She is not interested in nicotine patches, nor smoking cessation. Family history of PKD1. She reports nauseas, decreased PO intake, trouble keeping hydrated when she gets her frequent/recurrent UTI. LUckily, no UTI in >1 year. She has been drinking more tea/more soft drinks lately. - Review of Systems Constitutional: fever, chills, weakness, sweats, fatigue, loss of appetite Eyes: No: blurred vision, double-vision, discharge, itching, pain, redness, photophobia, other Ears: No: pain, bleeding, drainage, ringing, hearing loss, other Nose: No: bleeding, congestion, discharge, other Throat: No: pain, swelling, voice change, other Mouth: No: bleeding, pain, swelling, other Respiratory: No: cough, shortness of air, wheeze, hemoptysis, pain with breathing, other Cardiovascular: No: chest pain, left arm pain, diaphoresis, PND, orthopnea, edema, palpitations, syncope, other Gastrointestinal: abdominal pain, nausea. No: vomiting, diarrhea, melena, hematemesis, hematochezia, dysphagia, constipation, other Genitourinary: dysuria, hematuria, frequency, flank pain. No: incontinence, vaginal discharge, abnormal bleeding (resolved 2 weeks ago. ), pelvic pain Neurological: No: headache, other, dizziness, seizure, numbness, weakness, speech difficulty, problems with walking, tremor, fainting Musculoskeletal: No: pain, swelling in joints, other Skin: No: rash, pruritus, lacerations, wounds, bruising, other Immunology: No: hives, itching, frequent infections, difficulty healing, other Hematology: No: easy bruising, easy bleeding, swollen glands, other Endocrine: No: weight changes, cold intolerance, heat intolerance, excessive thirst, excessive hunger, polyuria, other Psychiatric: No: depression, anxiety, sleeplessness, hopelessness, suicidal, hallucinations, other Habits: tobacco use. No: substance use, alcohol use, other - Past Medical History Past Medical History: Recurrent UTI, Polycystic Kidney disease, Systemic Lupus Erythematosus, depression, anxiety, constipation. Miscarriage. - Past Surgical History Past Surgical History: Cholecystectomy, Appendectomy. - Allergies Allergies/Adverse Reactions: Allergies Allergy/AdvReac Type Severity Reaction Status Date / Time No Known Allergies Allergy Uncoded 03/04/19 05:53 - Medications Medications: Medications Generic Name Dose Route Start Last Admin Trade Name Freq PRN Reason Stop Dose Admin Sodium Chloride 1 syr 03/04/19 06:17 Saline Flush IVF PRN PRN To flush IV - Family History Past Family History: Mother: HTN, DM2, obesity, hyperlipidemia. Father: . Limited knowledge. Scoliosis. AD Polycystic Kidney Disease PKD1. : Girls x 3 healthy. Brother: HTN. Hyperlipidemia. - Social History Past Social History: +Tobacco 1ppd, no ETOH, no illicit drug use. - Body Composition Height: 5 ft 4 in Weight: 163 lb 6.4 oz Body Mass Index (BMI): 28.0 - Physical Examination HEENT: Vital Signs - 24 hr 03/04/19 03/04/19 03/04/19 05:45 09:00 11:10 Temperature 101.2 F H 98.0 F 97.5 F L Pulse Rate 135 H 103 H 98 H Respiratory 20 18 16 Rate Blood Pressure 167/108 H 132/88 O2 Sat by Pulse 97 97 98 Oximetry Constitutional: Appearance-No acute distress, Consistent with stated age. Orientation- Oriented x 3, alertGait-Normal pace, normal arm movement. Build and Nutrition-[mildly overweight BMI 28.] General- Patient is pleasant and cooperative with the interview and exam. MS4 pires in room today. Integumentary: General-No rashes, ulcers or lesions. Palpation- Normal skin moisture/turgor. Skin is warm to touch, appropriate. Capillary refill is normal bilateral Upper and lower extremity. No skin breakdown. MS 4 pires in room during skin exam. Head/Neck: Head- normocephalic and atraumatic. Neck- without visible/palpable lumps or pulsations. Palpation- No bony tenderness about head/neck along frontal, occipital, temporal, parietal, mastoid, jawline, zygoma, orbit or any other location. NO temporal artery tenderness. No TMJ tenderness. Neck Supple. Thyroid-No thyromegaly, no nodules Eye: Bilaterally PERRLA, EOMI. No discharge. Upper and lower eyelids are normal. Sclera/conjunctiva normal without discharge. Cornea is normal and clear. Lens is normal. Eyeball appears normal. No ciliary flushing, no conjunctival injection. ENMT: Pinna- normal without tenderness or erythema. External auditory canal Left- normal without erythema or discharge, no excessive cerumen. External auditory canal Right-normal without erythema or discharge, no excessive cerumen. TM left- Wang/pearly, normal light reflex and anatomy TM Right- Wang/ pearly, normal light reflex and anatomy Hearing Assessment-normal to conversational speech. Nose and sinus- No sinus tenderness along frontal/ maxillary region. External appearance normal and midline. Nares- bilateral quiet airflow, no discharge. Nasal mucosa- No bleeding noted and no ulcerations observed. [place], moist. Turbinates non boggy. Lips- normal color, moist without cracks/lesions Oral Cavity/Palate- hard/soft palate intact without lesions, oral mucosa pink and moist. Dentition assessed [] and discussed appropriate oral care. Tongue normal midline. Oropharynx- no pharyngeal erythema, Uvula midline. No post nasal drip. No exudate. Salivary glands- Non tender to palpation CHEST/LUNG: Inspection- symmetric chest wall no pectus deformity. Normal effort , no distress, no use of accessory muscles. Palpation- nontender sternum, ribline. No abnormal pulsations. Auscultation- Breath sounds normal throughout all lung mullins. Normal tracheal sounds, Normal bronchial sounds overlying sternum, Bronchovessicular sounds normal between scapulae posteriorly, Normal vessicular breath sounds heard throughout periphery. Lungs are clear today. Adventitious sounds- No wheezes, rales, rhonchi. CARDIOVASCULAR: Carotid artery- normal, no bruits or abnormal pulsations. Jugular vein- no pulsations. Palpation/Percussion- Normal PMI, no palpable thrill Auscultation- Regular rate and rhythm. No murmur noted in sitting, supine positions. Extremities- no digital clubbing, cyanosis, edema, increased warmth. ABDOMEN: Inspection- normal and no visible pulsations. Normal contour. Auscultation- Bowel sounds normal, no abdominal bruits. Palpation/Percussion- soft, tender suprapubic region, tender left flank, +CVA tenderness. no rebound tenderness, no rigidity (guarding), no jar tenderness, no masses. Liver-no hepatomegaly, Spleen no splenomegaly, Hernias- none. Rectal not examined. Peripheral Vascular: Upper extremity Left- Normal temperature with pink nailbeds and no ulcerations. Upper extremity Right- Normal temperature with pink nailbeds and no ulcerations. Lower extremity- Normal temperature with pink nailbeds and no ulcerations. DP pulses 2+ bilaterally. Pedal hair intact. Normal capillary refill. Edema- No edema. Musculoskeletal: Generalized-No generalized swelling or edema of extremities, no digital clubbing or cyanosis, neurovascularly intact all four extremities. Upper extremity- Symmetrical posture. No visible deformity. Normal sensation along medial and lateral upper extremity proximally and distally. NO tenderness overlying shoulder, lateral/medial epicondyle. [employer] 5/5 and strength 5/5 bilateral UE. Elbow palpated, no tenderness overlying olecranon. Normal supination, pronation to active/passive ROM and to resisted rotation. Bicep insertion/tricep insertion appear normal without obvious pathology. Rotator cuff evaluated and intact. Normal wrist ROM bilaterally. Normal hand movement, intrinsic muscles of hands normal. No tenderness to palpation of hands/wrists/ elbows. Lower extremity- Hip: Not tender to palpation, no pain, no swelling, edema or erythema of surrounding tissue, normal strength and tone. Normal appearing hip ROM bilaterally without pain. Knee: Knee ROM normal. No tenderness overlying trochanters, no tenderness about patella, quad tendon, patellar tendon. No tenderness at tibial tuberosity. Ankle: normal ROM not tender to palpation along medial/lateral malleolus. Foot: Normal movement of toes, no tenderness bilateral feet/toes. Normal foot type. Spine/Ribs- No deformities, masses or tenderness to spine/paraspinal region. She has flank pain and +CVA on left, no known fractures, normal strength, Normal ROM. Normal stability No tenderness along C/T/L spine. Normal appearing ROM about spine. Neurological: General- Moves all 4 extremities symmetrically. Symmetrical face and body posture. Cranial nerves- individually evaluated II-XII and intact. PERRLA, Normal EOMI, visual/special senses appear intact, Face is symmetrical and normal sensation/movement, normal tongue, normal strength/posture of neck musculature. Reflexes- intact with DTR 2+ patellar, Achilles, bicep, brachial, tricep. Ankle clonus normal with 2 beats. Strength- 5/5 bilateral UE and LE. Soft touch- intact bilateral UE and LE. Temperature sensation- intact bilateral UE and LE. Neuropsych: Oriented- Person, place, time. (AAOx3), Mood/affect- normal and congruent. Able to articulate well. Speech-Normal speech, normal rate, normal tone, normal use of language, volume and coherence. Thought content- normal with ability to perform basic computations and apply abstract thought/reason. Associations- intact, no SI/HI, no hallucinations, delusions, obsessions. Judgment/insight- Appropriate. Memory-Recall intact, remote and recent memory intact. Knowledge- Age appropriate fund of knowledge, concentration and attention span normal. Lymphatic: Head/Neck- normal size and non tender to palpation. Axillary- normal size and non tender to palpation. Femoral and Inguinal- normal size and non tender to palpation. - Lab/Tests/Diagnostic Imaging Lab/Tests/Diagnostic Imaging: Laboratory Last Values WBC 15.99 K/ul (4.6-10.2) H 03/04/19 06:30 RBC 4.26 10^6/ul (4.20-5.40) 03/04/19 06:30 Hgb 12.5 g/dl (12.0-16.0) 03/04/19 06:30 Hct 37.4 % (37.0-47.0) 03/04/19 06:30 MCV 87.8 fl (81.0-99.0) 03/04/19 06:30 MCH 29.3 pg (27.0-31.0) 03/04/19 06:30 MCHC 33.4 (31.8-35.4) 03/04/19 06:30 RDW Coeff of April 12.4 % (11.6-14.8) 03/04/19 06:30 Plt Count 224 10^3/uL (140-440) 03/04/19 06:30 Immature Gran % (Auto) 0.4 % (0.0-5.0) 03/04/19 06:30 Neut % (Auto) 85.8 03/04/19 06:30 Lymph % (Auto) 4.8 (10.0-50.0) L 03/04/19 06:30 [place] % (Auto) 8.6 (0-10) 03/04/19 06:30 Eos % (Auto) 0.1 % (0.0-7.0) 03/04/19 06:30 Baso % (Auto) 0.3 % (0.0-3.0) 03/04/19 06:30 Immature Gran # (Auto) 0.1 (0.0-1.0) 03/04/19 06:30 Neut # (Auto) 13.7 K/ul (2.0-6.9) H 03/04/19 06:30 Lymph # (Auto) 0.8 K/uL (0.60-3.4) 03/04/19 06:30 [place] # (Auto) 1.4 K/uL (0.4-2.0) 03/04/19 06:30 Eos # (Auto) 0.0 K/ul (0.0-0.7) 03/04/19 06:30 Baso # (Auto) 0.0 K/uL (0-0.2) 03/04/19 06:30 Sodium 135.1 mmol/L (134.5-145) 03/04/19 06:30 Potassium 3.52 mmol/L (3.5-5.1) 03/04/19 06:30 Chloride 102.0 mmol/L (98-107) 03/04/19 06:30 Carbon Dioxide 27.2 mmol/L (22-30.0) 03/04/19 06:30 Anion Gap 9.42 03/04/19 06:30 BUN 13.6 mg/dL (7-17) 03/04/19 06:30 Creatinine 0.61 mg/dL (0.60-1.30) 03/04/19 06:30 Estimated GFR (MDRD) 110.00 mL/min 03/04/19 06:30 BUN/Creatinine Ratio 22.29 03/04/19 06:30 Glucose 124.1 mg/dL (74-106) H 03/04/19 06:30 Lactic Acid 1.29 mmol/L (0.7-2.1) 03/04/19 06:30 Calcium 8.98 mg/dL (8.4-10.2) 03/04/19 06:30 Total Bilirubin 0.40 mg/dL (0.2-1.3) 03/04/19 06:30 AST 73.6 U/L (14-36) H 03/04/19 06:30 ALT 45.3 U/L (0-35) H 03/04/19 06:30 Alkaline Phosphatase 126.6 U/L (38-126) H 03/04/19 06:30 Total Protein 7.18 g/dL (6.3-8.2) 03/04/19 06:30 Albumin 3.84 g/dL (3.5-5.0) 03/04/19 06:30 Globulin 3.34 03/04/19 06:30 Albumin/Globulin Ratio 1.14 03/04/19 06:30 Procalcitonin 0.27 ng/mL (0.09) 03/04/19 06:30 Urine Color Yellow (YELLOW) 03/04/19 05:50 Urine Clarity Slightly (CLEAR) 03/04/19 05:50 Urine pH 7.5 (5-9) 03/04/19 05:50 Ur Specific [place] 1.025 (1.005-1.030) 03/04/19 05:50 Urine Protein 2+ (NEGATIVE) 03/04/19 05:50 Urine Glucose (UA) Negative (NEGATIVE) 03/04/19 05:50 Urine Ketones Negative (NEGATIVE) 03/04/19 05:50 Urine Blood 2+ (NEGATIVE) 03/04/19 05:50 Urine Nitrite Negative (NEGATIVE) 03/04/19 05:50 Urine Bilirubin Negative (NEGATIVE) 03/04/19 05:50 Urine Urobilinogen 0.2 (0.2) 03/04/19 05:50 Ur Leukocyte Esterase 1+ (NEGATIVE) 03/04/19 05:50 Urine Microscopic RBC 30-50 (0-2) 03/04/19 05:50 Urine Microscopic WBC 2-5 (0-2) 03/04/19 05:50 Ur Squamous Epith Cells 2-5 (0-5) 03/04/19 05:50 Urine Test Negative (NEGATIVE) 03/04/19 05:50 CT Abd/pelvis w/o contrast: Non specific left perinephric stranding. Nonspecific findings correlate with s/sx of pyelonephritis. Incomplete eval w/ o contrast. Findings of Polycystic kidney disease, innumerable large and small renal cysts replacing the renal parencyhma some complex. Right and left nephrolithiasis without hydronephrosis. - Assessment (1) Elevated blood pressure reading Status: Acute Code(s): R03.0 - ELEVATED BLOOD-PRESSURE READING, W/O DIAGNOSIS OF HTN SNOMED Code(s): 28698308 (2) SIRS (systemic inflammatory response syndrome) Status: Acute Code(s): R65.10 - SIRS OF NON-INFECTIOUS ORIGIN W/O ACUTE ORGAN DYSFUNCTION SNOMED Code(s): 388249064 (3) Sepsis Status: Inactive Code(s): A41.9 - SEPSIS, UNSPECIFIED ORGANISM SNOMED Code(s ): 98463591 (4) Acute pyelonephritis Status: Acute Code(s): N10 - ACUTE PYELONEPHRITIS SNOMED Code(s): 59576448 (5) Leukocytosis (leucocytosis) Status: Acute Code(s): D72.829 - ELEVATED WHITE BLOOD CELL COUNT, UNSPECIFIED SNOMED Code(s): 987352260, 838072513 (6) Tobacco use Status: Acute Code(s): Z72.0 - TOBACCO USE SNOMED Code(s): 050060231 (7) Transaminitis Status: Acute Code(s): R74.0 - NONSPEC ELEV OF LEVELS OF TRANSAMNS & LACTIC ACID DEHYDRGNSE SNOMED Code(s): 837778766, 963844323 - Plan Plan: Pyelonephritis/SIRS/SEPSIS: complicated cystitis/pyelonephritis with stones on CT scan. We reviewed decision for observation vs inpatient admission and inpatient admission was indicated due to acute complicated UTI, SIRS/SEPSIS. Fever was >101, pain, difficulty with maintaining oral hydration. At present she was given fluids, BP was not controlled. Given BP meds and she was not stabilized in an outpatient setting and with her history of recurrent infections , she warrants inpatient admission. We will start her on empiric IV levaquin. She received 500 daily in ED, will increase to 750 daily and complete 7 day course. She has presented with 4 day history of worsening symptoms fever x 24 hours non responsive to antipyretics. Most likely agents E. Coli, Klebsiella, Proteus, etnerococcus. Presented with s/sx of complicated UTI/pyelo and ER testing confirmed dx and SIRS/SEPSIS. No urinary isolate within 3 months resistant to FQ. I reviewed her chart and looked at Urine cultures. 04/20/18 negative, 01/31/18 negative. 11/19/17, 09/12/15, , 07/24/15, 11/28/14 and were all E. Coli sensitive to Levaquin. This is a good empiric choice. Rocephin would also be a good choice if needed. test was negative. - Admit inpatient - CBC/CMP daily - Strict I+O - Vitals q 8hours - Tylenol for fever reduction - Morphine 4 q 6 hours. - Levaquin 750 daily IV, change to PO when fever free 24 hours. - Urine culture - Await blood cultures. - Levaquin 750 daily x 7 days. Leukocytosis: Repeat CBC in am. Elevated glucose: Check A1C in am. LUPUS: Unknown status, history of positive ROBYN. Await ROBYN w/ reflex. Chronic problem - ROBYN with reflex Transaminitis: Await Repeat CMP in the am after hydration. Polycystic Kidney Disease with Elevated BP: Creatinine is okay, GFR is okay. Despite this, it is important to control the patient BP. Pt with HTN and ADPKD typically respond well to [place]-I or ARB and we will start with lisinopril 10mg daily. Vasotec in ER x 1 worked very well to lower her BP. Since focal ischemia of the cysts stimulates the [place] angiotension system, these meds should work quite well. Additionally, it theoretically protects against secondary glomerular injury by reducing the intraglomerular pressures. We will monitor GFR as a reversible decline in GFR can be seen as can an increase in serum creatinine. Patient being of childbearing age needs to be counselled about risks to and developing. - Lisinopril 10mg daily PO titrate to effect - Goal BP is <130/80. - F/u with PCP as outpatient to adjust further. DVT prophy: Lovenox 40mg subcut daily. R/B/A to lovenox d/w patient. She has had recent miscarriage with atypical bleeding x 3 months. She has stopped 2 weeks ago. Benefits of DVT prophy outweigh risks. She has stable HGb. Monitor. Diet: Regular. 1 pack per day: Tobacco Cessation discussed today for 2 minutes. We reviewed lifestyle choices and discussed quitting. Ready to quit status discussed. The risks and hazards of continued tobacco abuse were discussed with the patient today and total tobacco cessation as recommended. It was clearly and unambiguously explained that continued tobacco usage will adversely affect overall morbidity and mortality of the patient. Patient was informed that tobacco use can lead to numerous cancers, worsening of cardiovascular and pulmonary systems and that lung damage is often permanent and irreversible. I advised the patient to inform me if any further assistance is requested, as we can offer counseling services, nicotine replacement inhaled, patch, lozenge, gum, or prescription medications to include Chantix or Wellbutrin for assistance. I will reassess the interest in tobacco cessation at the next and all subsequent visits. - Declined nicotine replacement. - She wants to leave hospital to smoke. I discussed I do not encourage this. Disposition: I suspect 48 hour hospital stay. I will monitor temperature, BP, monitor uout w/ I+O. I reviewed imaging, labs and discussed them with patient. Reviewed last admit, discussed case with DR. Melendez 1:1 in the ER. >70 minutes spent on admission today. If she is able to leave hospital to smoke, we may be forced to sign out AMA. She is aware. Does not want any nicotine replacement.
[2019-03-04] MEDS ORDERED: LOVENOX SUBCUT SCH (09:00)
[2019-03-04] MEDS: SODIUM CHLORIDE 1,000 ML IV SCH (12:51)
[2019-03-04] MEDS ORDERED: MORPHINE 4 MG/ML VIAL IVP ONE (13:17)
[2019-03-04] MEDS ORDERED: LEVAQUIN 250 MG in PREMIX 50 ML D5W 1 BAG IV SCH (14:00)
[2019-03-04] MEDS ORDERED: ZESTRIL PO SCH (18:00)
[2019-03-04] MEDS: MORPHINE 4 MG/ML VIAL IVP SCH ×2 (18:29→23:09)
[2019-03-05] MEDS: SODIUM CHLORIDE 1,000 ML IV SCH (03:14)
[2019-03-05] MEDS: MORPHINE 4 MG/ML VIAL IVP SCH (05:20)
[2019-03-05 06:00] VITALS: BP 138/76; TEMP 98.6
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
[2019-03-05] MEDS ORDERED: LEVAQUIN 750 MG in PREMIX 150 ML D5W 1 BAG IV SCH (09:00)
[2019-03-05] MEDS ORDERED: LEVAQUIN 500 MG in PREMIX 100 ML D5W 1 BAG IV SCH (09:00)
== END 2019-03-05 08:30 | disposition home or self-care (01) ==
LOC: ED 05:28 → INTOOBSV 08:37 → MEDSURG B 08:37
PROVIDERS: ADMIT Family Medicine; ATTEND Family Medicine
DX: N10 Acute pyelonephritis (principal); A41.9 Sepsis, unspecified organism; R65.10 Systemic inflammatory response syndrome (SIRS) of non-infectious origin without acute organ dysfunction; M54.9 Dorsalgia, unspecified; F41.9 Anxiety disorder, unspecified; D72.829 Elevated white blood cell count, unspecified; R10.9 Unspecified abdominal pain; R30.9 Painful micturition, unspecified; R31.9 Hematuria, unspecified; R03.0 Elevated blood-pressure reading, without diagnosis of hypertension; R74.0 Nonspecific elevation of levels of transaminase and lactic acid dehydrogenase [LDH]; R30.0 Dysuria; Z72.0 Tobacco use
CPT/HCPCS: 36415; 80053; 81001; 81025; 83036; 83605; 84145; 85025; 86038; 86140; 87040; 96361; 96365; 96372; 96374; 96375; 99284